=== PATIENT | female | born 1975 | race Caucasian/White ===

== ENCOUNTER 2022-01-15 11:13 | Emergency (ER) | payer SELFPAY ==
--- NOTE | 2022-01-15 13:15 | RAD REPORT ---
EXAM DESCRIPTION: RAD - Chest Single View - 01/15/2022 1:06 pm CLINICAL HISTORY: COUGH Chest pain. COMPARISON: No comparisons FINDINGS: Portable technique limits examination quality. The lungs are grossly clear. The heart is normal in size. No displaced fractures. IMPRESSION: No acute intrathoracic process suspected.
--- NOTE | 2022-01-15 13:30 | EDPHYS ---
Physician Documentation [facility] Name: Samantha Garcia Age: 46 yrs Sex: Female : 1975 Arrival Date: 01/15/2022 Time: 11:15 Bed 10 Private MD: ED Physician Joseph Adams Historical: - Allergies: 01/15 11:46 No Known Allergies; ss - Home Meds: 11:46 None [Active]; ss - PMHx: 11:46 None; ss - PSHx: 11:46 section; ss - Immunization history:: Client reports having NOT received the Covid vaccine. - Social history:: Smoking status: Patient denies any tobacco usage or history of. Vital Signs: 11:45 BP 144 / 97; Pulse 85; Resp 16; Temp 97.9(TE); Pulse Ox 100% on R/A; Weight 127.01 kg; ss Height 5 ft. 4 in. (162.56 cm); Pain 5/10; 11:45 Body Mass Index 48.06 (127.01 kg, 162.56 cm) ss MDM: 11:54 Patient medically screened. [facility] 01/15 11:47 Order name: COVID-19 SARS RT PCR (Document "Date of Onset" if Symptomatic); Complete Time: 13:28 01/15 11:47 Order name: Flu; Complete Time: 13:28 ss 01/15 12:25 Order name: Chest Single View XRAY; Complete Time: 13:28 [facility] Administered Medications: No medications were administered Disposition Summary: 01/15/22 13:29 Discharge Ordered Location: Home [facility] Problem: new [facility] Symptoms: are unchanged [facility] Condition: Stable [facility] Diagnosis - Coronavirus infection, unspecified [facility] Followup: [facility] - With: Private Physician - When: 5 - 6 days - Reason: Recheck today's complaints Discharge Instructions: - Discharge Summary Sheet [facility] - Viral Respiratory Infection, [id number] [facility] - COVID-19 [facility] - COVID-19 Frequently Asked Questions [facility] - 10 Things You Can Do to Manage Your COVID-19 Symptoms at Home - [place] [id number] Forms: - Medication Reconciliation Form [facility] - Thank You Letter [facility] Prescriptions: - Bromfed DM 2-30-10 mg/5 mL Oral syrup - take 10 milliliter by ORAL route every 4 hours; 240 milliliter; Refills: 0, 7 Product Selection Permitted - ProAir HFA 90 mcg/actuation Inhalation HFA aerosol inhaler - inhale 2 puff by INHALATION route every 4-6 hours; 1 Inhaler; Refills: 0, jh7 Product Selection Permitted Signatures: Dispatcher [employer] Ely Renner RN RN Shante Rice FNP [employer] 7
--- NOTE | 2022-01-15 13:30 | ER ---
Nurse's Notes [facility] Name: Samantha Garcia Age: 46 yrs Sex: Female : 1975 Arrival Date: 01/15/2022 Time: 11:15 Bed 10 Private MD: Diagnosis: Coronavirus infection, unspecified Presentation: 01/15 11:45 Chief complaint: Patient states: covid exposure. Fever and cough x 4 days. Coronavirus ss screen: Client denies travel out of the [place] in the last 14 days. Ebola Screen: Patient denies exposure to infectious person. Patient denies travel to an Ebola-affected area in the 21 days before illness onset. Initial Sepsis Screen: Does the patient meet any 2 criteria? No. Patient's initial sepsis screen is negative. Does the patient have a suspected source of infection? No. Patient's initial sepsis screen is negative. Risk Assessment: Do you want to hurt yourself or someone else? Patient reports no desire to harm self or others. Onset of symptoms was January 11, 2022. 11:45 Method Of Arrival: Ambulatory ss 11:45 Acuity: GONZALEZ 4 ss Historical: - Allergies: 11:46 No Known Allergies; ss - Home Meds: 11:46 None [Active]; ss - PMHx: 11:46 None; ss - PSHx: 11:46 section; ss - Immunization history:: Client reports having NOT received the Covid vaccine. - Social history:: Smoking status: Patient denies any tobacco usage or history of. Screenin:54 Abuse screen: Denies threats or abuse. Denies injuries from another. Nutritional ss screening: No deficits noted. Tuberculosis screening: Never had TB. Fall Risk None identified. Assessment: 13:54 Reassessment: Patient appears in no apparent distress at this time. Patient and/or ss family updated on plan of care and expected duration. Pain level reassessed. Patient is alert, oriented x 3, equal unlabored respirations, skin warm/dry/pink. Vital Signs: 11:45 BP 144 / 97; Pulse 85; Resp 16; Temp 97.9(TE); Pulse Ox 100% on R/A; Weight 127.01 kg; ss Height 5 ft. 4 in. (162.56 cm); Pain 5/10; 11:45 Body Mass Index 48.06 (127.01 kg, 162.56 cm) ED Course: 11:15 Patient arrived in ED. rg4 11:46 Triage completed. 11:46 Arm band placed on right wrist. 11:53 Shante Martin FNP is [facility] 7 11:53 Joseph Adams MD is Attending Physician. [facility] 13:06 Chest Single View XRAY In Process Unspecified. EDMS 13:54 Ely Milan, RN is Primary Nurse. ss 13:54 Patient has correct armband on for positive identification. Bed in low position. 13:54 No provider procedures requiring assistance completed. Patient did not have IV access ss during this emergency room visit. Administered Medications: No medications were administered Medication: 13:54 VIS not applicable for this client. Outcome: 13:29 Discharge ordered by . [facility] 13:54 Discharged to home ambulatory, with family. 13:54 Condition: good 13:54 Discharge instructions given to patient, Instructed on discharge instructions, follow up and referral plans. medication usage, Demonstrated understanding of instructions, follow-up care, medications, Prescriptions given X 2. 13:57 Patient left the ED. Signatures: Dispatcher [employer] EDMD Ely Milan RN RN linda Luacs Olesya rg4 Shante Martin FNP TALK SHOW HOST [facility]
[2022-01-15 14:07] VITALS: BP 144/97; TEMP 97.9; O2SAT 100
== END 2022-01-15 13:57 | disposition home or self-care (01) ==
LOC: ER 11:13
DX: U07.1 COVID-19 (principal)
CPT/HCPCS: 71045; 87804; U0003

== ENCOUNTER 2023-02-27 13:18 | Emergency (ER) | payer SELFPAY ==
--- OUTSIDE RECORDS SUMMARY | 2023-02-27 13:22 | XMS REPORT | Continuity of Care Document ---
:1975 Author Organization [facility] t Address [address] [facility]. [address] [place] [address] Care Team Providers Name Role Phone Asked, No Pcp Primary Care Physician Unavailable MADISON COTTER Attending Clinician Unavailable BARBRA SIDDIQI Attending Clinician Unavailable CLAY INGRAM Attending Clinician Unavailable YADIRA YOUNG Attending Clinician Unavailable Physician, No Primary or Family Admitting Clinician UnavailCLAY Ray Admitting Clinician Unavailable Anoop Delgado MA Unavailable Unavailable Barbra Siddiqi MD Unavailable Aida Domínguez LVN Unavailable Unavailable Fransisca Stewart MA Unavailable Unavailable Payers Payer Name Policy Type Policy Number Effective Date Expiration Date S verena [employer] [place] D [id number] 2020 00:00:00 Women Problems Condition Condition Condition Status Onset Resolution Last Treating Co mments Source Name Details Category Date Date Treatment Clinician Date COVID-19 COVID-19 67051-4 Active 2020-09-05 Danny, virus not virus not 2-24 13:38:39 Anoop detected detected 00:00: (Z20.822) 00 (Z03.818)O nset: JOSHUA Bal Anoop Abdominal Abdominal 76240-3 Active 2020-07-27 Siddiqi, mass, LLQ mass, LLQ 14:50:54 Barbra (left (left lower lower quadrant) quadrant) (R19.04) (789.34)MD Barbra Trejo Abortions AbortionsC 80588-9 Active 2020-07-27 omments: 14:15:07 1. Bartholin Bartholin 52588-9 Active 2020-06-21 Siddiqi, cyst cyst 13:16:00 Barbra (N75.0) (616.2)Pro gnosis: Draining on its own, much smaller than last visit. 1. continue Sitz baths 2. 3 days po doxy 3. RTC if it reaccumula tesOrderin g screening labs to discuss at next visit. 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 Aida Calculus Calculus 18728-0 Active 2020-12-06 Siddiqi, of of 09:38:14 Barbra gallbladde gallbladde r without r without cholecysti cholecysti tis tis without without obstructio obstructio n n (K80.20) (574.20)Trejo MD KrystalCom ments: Abdominal U/S in October 2020 Contact Contact 74605-7 Active 2020-08-31 Siddiqi, with and with and 15:39:08 Barbra (suspected (suspected ) exposure ) exposure to Covid to Covid (Renamed (Renamed from from Contact Contact with or with or suspected suspected exposure exposure to other to other viral viral communicab communicab le le disease) disease) (Z20.828) (V01.79)Trejo MD Barbra Deliveries Deliveries 97507-5 Active 2020-07-27 (Para) (Para)Comm 14:15:07 ents: 4. Visit for Visit for [address] [place] [address] Active 2020-06-14 Stone, screening screening 13:32:51 Fransisca mammogram mammogram (Renamed (Renamed from from Encounter Encounter for for screening screening mammogram mammogram for for malignant malignant neoplasm neoplasm of breast) of breast) (Z12.31) (V76.12)[facility], [place] Fransisca Screening Screening [address] [place] [address] Active 2020-06-21 Siddiqi, for for 12:10:20 Barbra diabetes diabetes mellitus mellitus (Z13.1) (V77.1)José lemus MD [place] [address] Active 2020-12-06 Siddiqi, discharge discharge 09:36:25 Barbra follow-up follow-up (Z09) (V67.59)MD Barbra Trejo Irreducibl Irreducibl [address] [place] [address] Active 2020-12-06 Devang, e hernia e hernia 09:37:23 Barbra of of anterior anterior abdominal abdominal wall wall (K43.6) (552.20)MD Barbra Trejo Menorrhagi Menorrhagi [address] [place] [address] Active 2020-12-06 Devang, a a (N92.0) 09:39:37 Barbra (626.2)Pro gnosis: Pt will need endometria l biopsy. Make f/u appointmen t for that. Will start po iron today. 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 Ventral Ventral 40389-4 Active 2020-12-06 Siddiqi, hernia hernia 09:37:41 Barbra without without obstructio obstructio n or n or gangrene gangrene (K43.9) (553.20)MD Barbra Trejo Allergies, Adverse Reactions, Alerts Allergy Allergy Status Severity Reaction(s) Onset Inactive Treating Comm ents Source Name Type Date Date Clinician No Known DA Active U [facility]- [facility] 00:00: [address] No Known DA Active U 2019-07 [facility]- [facility] s 00:00: [address] No Known DA Active U [facility] - Wesley s 00:00: [address] Social History Social Habit Start Date Stop Date Quantity Comments Source Drug Use: No drug use. Tobacco use: Never smoker. Tobacco/Smoke Family members Exposure: smoke indoors. Family members smoke outdoors only. Vaping/JUULing: Never smoker. Alcohol Use: Occasional alcohol use. Gender identity [facility] Sexual orientation [facility] Sex Assigned At [birth year] [facility] 00:[facility]00 [facility] Smoking Status Start Date Stop Date Source Tobacco smoking consumption unknown [facility] Medications Ordered Filled Start Stop Current Ordering Indication Dosage Frequency Signature Comments Components Source Medication Medication Date Date Medication? Clinician (SIG) Name Name Ferrous No 1{Table Q0.5D Ferrous Sulfate 325 5-27 t} Sulfate (65 Fe) MG 00:00: 325 (65 Oral Tablet 00 Fe) MG Oral Tablet; 1 (one) Tablet twice a day for 30 daysQuanti ty: 60 {Tablet}Re fills: 0Ordered: 1DMD Jersey matthewsystalSta rt: 1 Ferrous No 1{Table Q0.5D Ferrous Sulfate 325 5-27 t} Sulfate (65 Fe) MG 00:00: 325 (65 Oral Tablet 00 Fe) MG Oral Tablet; 1 (one) Tablet twice a day for 30 daysQuanti ty: 60 {Tablet}Re fills: 0Ordered: 1DMD Courtney matthews rt: 1 PATIENT NOT No 1 PATIENT TAKING ANY 1-15 NOT TAKING HERBAL 14:17: ANY HERBAL MEDICATIONS 36 MEDICATION AT THIS S AT THIS TIME (Oral TIME (Oral Capsule) Capsule) (Free Text) (Free Text); 1 (one) PATIENT NOT No 1 PATIENT TAKING ANY 1-15 NOT TAKING HERBAL 14:17: ANY HERBAL MEDICATIONS 36 MEDICATION AT THIS S AT THIS TIME (Oral TIME (Oral Capsule) Capsule) (Free Text) (Free Text); 1 (one) Doxycycline 2019-07 No 1{Table QD Doxycyclin Hyclate 100 2-10 t} e Hyclate MG Oral 00:00: 100 MG Tablet 00 Oral Tablet; 1 (one) Tablet daily for 3 daysQuanti ty: 3 {Tablet}Re fills: 0Ordered: 0MD Courtney Siddiqi rt: 0 Doxycycline 2019-07 No 1{Table QD Doxycyclin Hyclate 100 2-10 t} e Hyclate MG Oral 00:00: 100 MG Tablet 00 Oral Tablet; 1 (one) Tablet daily for 3 daysQuanti ty: 3 {Tablet}Re fills: 0Ordered: 0MD Courtney Siddiqi rt: 0 Vital Signs Vital Name Observation Time Observation Value Comments Source Temperature 2020-07-27 14:14:01 97.2 [degF] Pulse 2020-07-27 14:14:01 51 /min Pattern: Regular Respiration Rate 2020-07-27 14:14:01 16 /min Pattern: Unlabore d BP Systolic 2020-07-27 14:14:01 129 mm[Hg] Patient Position: Sitting; Cuff Location: Left Arm; Cuff Size: Standard BP Diastolic 2020-07-27 14:14:01 72 mm[Hg] Patient Position: Sitting; Cuff Location: Left Arm; Cuff Size: Standard Weight 2020-07-27 14:14:01 150 [lb_av] Height 2020-07-27 14:14:01 64 [in_us] BMI 2020-07-27 14:14:01 25.75 kg/m2 Temperature 2020-06-21 11:12:02 97.6 [degF] Method: Oral Pulse 2020-06-21 11:12:02 63 /min Pattern: Regular Respiration Rate 2020-06-21 11:12:02 18 /min Pattern: Unlabore d BP Systolic 2020-06-21 11:12:02 134 mm[Hg] Patient Position: Sitting; Cuff Location: Left Arm; Cuff Size: Standard BP Diastolic 2020-06-21 11:12:02 80 mm[Hg] Patient Position: Sitting; Cuff Location: Left Arm; Cuff Size: Standard Weight 2020-06-21 11:12:02 149 [lb_av] Height 2020-06-21 11:12:02 64 [in_us] BMI 2020-06-21 11:12:02 25.58 kg/m2 Temperature 2020-06-14 13:41:08 97.4 [degF] Method: Oral Pulse 2020-06-14 13:41:08 73 /min Pattern: Regular Respiration Rate 2020-06-14 13:41:08 16 /min Pattern: Unlabore d BP Systolic 2020-06-14 13:41:08 157 mm[Hg] Patient Position: Sitting; Cuff Location: Right Arm; Cuff Size: Standard BP Diastolic 2020-06-14 13:41:08 77 mm[Hg] Patient Position: Sitting; Cuff Location: Right Arm; Cuff Size: Standard Weight 2020-06-14 13:41:08 255 [lb_av] Height 2020-06-14 13:41:08 64 [in_us] BMI 2020-06-14 13:41:08 43.77 kg/m2 Procedures Procedure Date / Time Performed Performing Clinician [facility] e TRANSVAGINAL ULTRASOUND (05355) 2020-12-06 00:00:00 An Siddiqi Patient received annual dental 2020-06-21 00:00:00 check-up NEGATIVE SCREEN FOR CLINICAL 2020-06-14 00:00:00 Barbra Siddiqi DEPRESSION, FOLLOW-UP NOT REQUIRED (G8510) [id number] COUNSELING 2020-06-14 00:00:00 Purvi Siddiqi FOR OBESITY (G0447) DOCUMENTATION OF FOLLOW-UP PLAN FOR 2020-06-14 00:00:00 Barbra Siddiqi PATIENT WITH BMI ABOVE NORMAL (G8417) PATIENT SCREENED FOR TOBACCO USE 2020-06-14 00:00:00 Sweta Siddiqi AND IDENTIFIED A TOBACCO NON-USER (G9903) SCREENING FOR TOBACCO USE (4004F) 2020-06-14 00:00:00 Jersey Siddiqi Breast Cancer Screening 2020-06-14 00:00:00 Pap Smear 2020-06-14 00:00:00 Annual Eye Exam - FOR NON-DIABETICS ONLY Delivery Plan of Care Planned Activity Planned Date Details Comments Source Future Scheduled Test 2023-02-15 Hepatitis C [facility] 10:02:46 screening (procedure) [code = 934492672] Future Scheduled Test 2023-02-[address] [facility] 10:02:46 malignant neoplasm of cervix (procedure) [code = 894230391] Future Scheduled Test 2023-02-[address] [facility] 10:02:46 SCREENING [code = BREAST CANCER SCREENING] Future Scheduled Test 2023-02-[address] [facility] 10:02:46 malignant neoplasm of colon (procedure) [code = 474062396] Future Scheduled Test 2023-02-[address] [facility] 10:02:46 malignant neoplasm of colon (procedure) [code = 502816037] Future Scheduled Test 2023-02-15 INFLUENZA VACCINE [facility] 10:02:46 [code = INFLUENZA VACCINE] Future Scheduled Test 2023-02-[address] [facility] 10:02:46 malignant neoplasm of colon (procedure) [code = 915830200] Future Scheduled Test 2023-02-[address] [facility] 10:02:46 malignant neoplasm of colon (procedure) [code = 807216545] Future Scheduled Test 2023-02-[address] [facility] 10:02:46 malignant neoplasm of colon (procedure) [code = 189030304] Future Scheduled Test 2023-02-15 COVID-19 VACCINE [facility] 10:02:46 (#1) [code = COVID-19 VACCINE (#1)] Diagnostic Test 2020-12-06 IRON AND TIBC Pending 09:38:29 (12782) [code = 79804] Diagnostic Test 2020-12-06 IRON AND TIBC Pending 09:38:29 (43009) [code = 33493] Diagnostic Test 2020-12-06 FERRITIN (80873) Pending 09:38:26 [code = 88310] Diagnostic Test 2020-12-06 FERRITIN (59644) Pending 09:38:26 [code = 06423] Diagnostic Test 2020-12-06 CBC & PLATELETS Pending 09:38:22 (AUTO) (91972) [code = 19542] Diagnostic Test 2020-12-06 CBC & PLATELETS Pending 09:38:22 (AUTO) (00546) [code = 95357] Encounters Start End Encounter Admission Attending Care Care Encounter Source Date/Time Date/Time Type Type Clinicians Facility Department ID 2021-10-05 Outpatient [facility] [id number] [place] 07:40:31 [id number] [facility] 2020-11-04 Inpatient [facility] [id number] [facility] 12:34:00 09 [facility] 2020-05-03 Inpatient [facility] [id number] [facility] 18:31:00 87 [facility] 2020-03-23 Inpatient [facility] [id number] [facility] 10:47:00 25 [facility] 2020-12-06 2020-12-06 Historical 0 Wesley [id number] 09:29:10 16:53:59 Summary 94 2020-09-05 2020-09-05 Results 0 Wesley [id number] 13:37:46 13:38:45 notificati 64 on 2020-08-31 2020-08-31 Lab order 0 Wesley [id number] 15:38:53 16:15:46 without 62 visit 2020-08-15 2020-08-15 Phone 0 Wesley [id number] 16:26:40 16:29:49 Encounter 32 2020-08-15 2020-08-15 Outpatient CYNDEE [facility] [id number] [place] 00:00:00 00:00:00 , MADISON hunt 2020-07-27 2020-07-31 Office 0 Wesley [id number] 14:13:48 14:49:40 Visit 29 2020-07-18 2020-07-18 Outpatient SIDDIQI, [facility] [id number] [place] 00:00:00 00:00:00 BARBRA 115 Method i 2020-07-18 2020-07-18 Outpatient SIDDIQI, [facility] [id number] [place] 00:00:00 00:00:00 BARBRA 928 Method i 2020-07-18 2020-07-18 Outpatient SIDDIQI, [facility] [id number] [place] 00:00:00 00:00:00 BARBRA 929 Method i 2020-06-21 2020-06-29 Office 0 Wesley [id number] 11:09:30 10:34:36 Visit 46 2020-06-14 2020-06-20 Office 0 Wesley [id number] 13:30:54 16:39:21 Visit 62 2000-10-20 2000-10-22 Inpatient CLAY EUBANSK [facility] [id number] [place] 09:20:00 18:00:00 -[id number] [facility]ly [facility] 2000-09-28 2000-09-28 Outpatient CLAY EUBANKS [facility] D00 [id number] [place] 09:39:00 09:39:00 -[id number] Formerly [facility] 2000-08-05 2000-08-05 Outpatient CLAY EUBANKS [facility] D00 [id number] [place] 08:49:00 08:49:00 -[id number] Formerly [facility] 2000-05-11 2000-05-11 Outpatient CLAY EUBANKS [facility] D00 [id number] [place] 15:30:00 15:30:00 -[id number] Formerly [facility] 2000-05-05 2000-05-05 Outpatient CLAY EUBANKS [facility] D00 [id number] [place] 15:35:00 15:35:00 -[id number] Formerly [facility] 2000-04-14 2000-04-14 Outpatient CLAY EUBANKS [facility] D00 [id number] [place] 11:39:00 11:39:00 -[id number] Formerly [facility] 2000-04-10 2000-04-10 Outpatient ANGIE INGRAM [facility] D00 [id number] [place] 11:27:00 11:27:00 -[id number] Formerly [facility] 2000-02-29 2000-02-29 Emergency ER HANNAH, [facility] [id number] [place] 07:27:00 10:45:00 YADIRA -[id number] Formerly [facility] 1999-09-07 1999-09-09 Inpatient UR NATALY [facility] D000 [id number] [place] 11:03:00 21:17:00 -[id number] Formerly [facility] 1999-08-08 1999-08-08 Outpatient ANGIE INGRAM [facility] D00 [id number] [place] 14:18:00 14:18:00 -[id number] Formerly [facility] 1999-06-13 1999-06-13 Outpatient ANGIE INGRAM [facility] D00 [id number] [place] 08:52:00 08:52:00 -[id number] Formerly [facility] 1999-04-02 1999-04-02 Outpatient ANGIE INGRAM [facility] D00 [id number] [place] 16:02:00 16:02:00 -[id number] Formerly [facility] 1999-02-04 1999-02-04 Outpatient ANGIE INGRAM [facility] D00 [id number] [place] 11:57:00 11:57:00 -[id number] Formerly [facility] Results Test Description Test Time Test Comments Results Result Comments Source CBC W/AUTO DIFF 2020-11-05 06:49:00 Test Item Value Reference Range Interpretation Comme nts WHITE BLOOD CELL (test code = WBC) 6.9 K/mm3 4.1-12.1 N RED BLOOD CELL (test code = RBC) 3.98 M/mm3 3.8-5.5 N HEMOGLOBIN (test code = HGB) 9.1 G/DL 10.6-15.8 L HEMATOCRIT (test code = HCT) 32.3 % 31.8-47.4 N MEAN CELL VOLUME (test code = MCV) 81.2 fL 80.1-101.1 N MEAN CELL HGB (test code = MCH) 22.9 pg 25.3-35.3 L MEAN CELL HGB CONCETRATION (test code = MCHC) 28.2 G/DL 32.7-35. 1 L RED CELL DISTRIBUTION WIDTH (test code = RDW) 18.4 % 12.2-16. 4 H RED CELL DISTRIBUTION WIDTH (test code = RDW-SD) 53.7 fL 36.4- 46.3 H PLATELET COUNT (test code = PLT) 212 K/mm3 155-337 N MEAN PLATELET VOLUME (test code = MPV) 11.0 fL 6.8-11.2 N GRANULOCYTE % (test code = GR%) 72.9 % 37.8-82.6 N IMMATURE GRANULOCYTE % (test code = IG%) 0.9 % 0.0-2.0 N LYMPHOCYTE % (test code = LY%) 17.2 % 14.1-45.4 N MONOCYTE % (test code = MO%) 6.1 % 2.5-11.7 N EOSINOPHIL % (test code = EO%) 1.9 % 0.0-6.2 N BASOPHIL % (test code = BA%) 1.0 % 0.0-2.1 N NUCLEATED RBC % (test code = NRBC%) 0.0 /100WBC% 0.0-1.0 N GRANULOCYTE # (test code = GR#) 5.03 k/mm3 2.0-13.7 N IMMATURE GRANULOCYTE # (test code = IG#) 0.06 K/mm3 0.00-0.03 H LYMPHOCYTE # (test code = LY#) 1.19 K/mm3 0.6-3.8 N MONOCYTE # (test code = MO#) 0.42 K/mm3 0.11-0.59 N EOSINOPHIL # (test code = EO#) 0.13 K/mm3 0.0-0.4 N BASOPHIL # (test code = BA#) 0.07 K/mm3 0.0-0.1 N NUCLEATED RBC # (test code = NRBC#) 0.00 K/mm3 0.0-0.05 N COVID 19 Asymptomatic IH [id number] 15:18:00 Test Item Value Reference Range Interpretation Comments COVID 19 Asymptomatic IH AG (test Negative Neg code = COVNONPUIAG) - CT ABD PELVIS [id number] 15:06:00 [facility] : 1975 Sex: F Patient Name: ZONIA HENDRIX Unit No: [id number] EXAMS: CPT CODE: [id number] CT ABD PELVIS W/CONT 20690 LOCATION: T18 EXAM: CT ABDOMEN AND PELVIS WITH CONTRAST INDICATION: abd pain- RLQ hernia and epigastric pain, COMPARISON: None. TECHNIQUE: Multiple CT images of the abdomen and pelvis were obtained with recon structions in the coronal and sagittal planes. 75 ml of Isovue 300 was given intravenously. Up-to-date CT equipment and radiation dose reduction techniques were utilized. Automatic exposure control wasutilized. FINDINGS: Lung bases are clear. Liver is normal in appearance. Spleen is enlarged measuring 15.6 cm in size. Adrenal glands and pancreas normal. Gallbladder is contracted with multiple stonesmeasuring up to 11 mm. No bladder distention. Portal vasculature is patent. Kidneys enhance symmetrically. Tiny focal nodule in the left kidney containing macroscopic fat. This measures 9 mm. This mostlikely represents a small angiomyolipoma. No hydronephrosis or hydroureter. Urinary bladder is normal in size. Uterus and adnexal structures are age-appropriate in appearance. Large right lower quadrant hernia through the abdominal wall. Defect in the abdominal wall measures 5 cm. This contains small and large bowel loops. The appendix is also within this hernia. No bowel obstruction is seen. No evidence for strangulation or incarceration. Abdominal aorta is normal in caliber. IVC is normal. Bones are intact. Peripheral soft tissues are unremarkable. IMPRESSION: 1. Large right lower quadrant herniathrough the abdominal wall defect measuring 5 cm. Hernia contains small and large bowel loops. No bowel obstruction. No complication to suggest strangulation or incarceration. 2. Stones throughout the gallbladder measuring up to 9 mm. 3. Splenomegaly. at 1506 Reported and signed by: Chencho Camarena MD CC: Erin Burgess WORKING MANAGER Dictated Date/Time: 11/04/2020 (150) Technologist: Jasbir Prasad CTDI: 14.73 DLP: 801.07 Trnscrpt: 11/04/2020 (150) [email or web address] JOYCE Nowak NAME: HENDRIX[address] PHYS: Erin Rico NP [place] [address] : 1975 AGE: 45 SEX: F LOC: HaydeeANIKA 1 PHONE #: [phone] EXAM DATE: 11/04/2020 STATUS: ADM IN FAX #: [phone] RAD #: D/C DT PAGE 1 Signed Report Patient Name: ZONIA HENDRIX Unit No: [id number] EXAMS: CPT CODE: [id number] CT ABD PELVIS W/CONT 02496 (Continued) Orig Print D/T: S: 11/04/2020 (1509) JOYCE Nowak NAME: [address] PHYS: Erin Rico NP [place] [address] : 1975 AGE: 45 SEX: F LOC: MARYANN 1 PHONE #: [phone] EXAM DATE: 11/04/2020 STATUS: ADM IN FAX #: [phone] RAD #: D/CDT PAGE 2 [facility] [id number] 14:09:00 Test Item Value Reference Range Interpretation Comments WHITE BLOOD CELL (test code = WBC) 7.0 K/mm3 4.1-12.1 N RED BLOOD CELL (test code = RBC) 3.29 M/mm3 3.8-5.5 L HEMOGLOBIN (test code = HGB) 6.8 G/DL 10.6-15.8 L HEMATOCRIT (test code = HCT) 25.6 % 31.8-47.4 L MEAN CELL VOLUME (test code = MCV) 77.8 fL 80.1-101.1 L MEAN CELL HGB (test code = MCH) 20.7 pg 25.3-35.3 L MEAN CELL HGB CONCETRATION (test 26.6 G/DL 32.7-35.1 L code = MCHC) RED CELL DISTRIBUTION WIDTH (test 18.3 % 12.2-16.4 H code = RDW) PLATELET COUNT (test code = PLT) 211 K/mm3 155-337 N MEAN PLATELET VOLUME (test code = 10.3 fL 6.8-11.2 N MPV) DIFFERENTIAL [id number] 14:09:00 Test Item Value Reference Range Interpretation Comments POLYCHROMASIA (test code = SLIGHT ON SCAN NONE POLC) HYPOCHROMIA (test code = HYPO) MOD ON SCAN NONE A ANISOCYTOSIS (test code = SLIGHT ON SCAN NONE ANISO) STOMATOCYTES (test code = STO) RARE ON SCAN NONE PLATELET ESTIMATE (test code = ADEQ ON SCAN ADEQUATE PLTEST) - US ABDOMEN [id number] 13:46:00 [facility] : 1975 Sex: F Patient Name: ZONIA HENDRIX Unit No: [id number] EXAMS: CPT CODE: [id number] US ABDOMEN COMPLETE 08088 EXAM: - US ABDOMEN COMPLETE HISTORY: abd pain- RLQ hernia and epigastric pain C3 TECHNIQUE: Survey ultrasoundimaging of the right upper abdomen was performed including color Doppler evaluation of the main portal vein with financial representative images obtained. COMPARISON: None FINDINGS: Statements: None. Liver: Right hepatic lobe length: 14 cm Parenchyma/Contour: Increase in echogenicity consistent with hepatic steatosis. No focal hepatic lesions noted sonographically. Main portal vein: Patent with normal (hepatopetal) flow. Biliary ducts: No intrahepatic biliary ductal dilation. Common duct measures 5.6 mm in diameter at the vanna hepatis. Gallbladder: The gallbladder is contracted around multiple stones. No gallbladder wall thickening or pericholecystic fluid. Pancreas: The pancreas is obscured by bowel gas. Right Kidney: The right kidney has a normal sonographic appearance. No solid mass lesion is seen. No hydronephrosis is present. Renal cortical thickness and echogenicity is within normal limits. Length: 11.5 cm Vessels: The visualized IVC in the upper abdomen is unremarkable. The visualized aorta in the upper abdomen is unremarkable. Other: Additional targeted imaging of the right lower quadrant demonstrates a hernia with normally peristalsing bowel present. IMPRESSION: 1. Cholelithiasis. No sonographic evidence of acute cholecystitis or biliary dilatation/obstruction. 2. Minimal hepatic steatosis. No focal hepatic lesions noted sonographically. 3. Additional targeted imaging of the right lower q uadrant demonstrates a bowel-containing hernia. Correlate clinically on physical exam and consider further evaluation with CT if it is clinically warranted. JOYCE Wesley NAME: [address] PHYS: Erin [place] [address] : 1975 AGE: 45 SEX: F LOC: SHARAN PHONE #: [phone] EXAM DATE: 11/04/2020 STATUS: [facility] FAX #: [phone] RAD NO: Page 1 Signed Report (CONTINUED) Patient Name: ZONIA HENDRIX Unit No: [id number] EXAMS: CPT CODE: [id number] US ABDOMEN COMPLETE 29324 (Continued) at 1346 Reported and signed by: Sylvie Chacon MD CC: Erin Burgess NP Technologist: Sabrina Wiley RDMS Trnscrbd D/ (1346) [email or web address] Probe: Orig Print D/T: S: 11/04/2020 (1349) Probe: JOYCE Nowak NAME: H[address]RI[address] PHYS: Erin Rico [place] [address] : 1975 AGE: 45 SEX: F LOC: SHARAN PHONE #: [phone] EXAM DATE: 11/04/2020 STATUS: [facility] FAX #: [phone] RAD NO: Page 2 Signed ReportBASIC METABOLIC [id number] 13:33:00 Test Item Value Reference Range Interpretation Comments SODIUM (test code = 137.0 mmol/L 133-144 N NA) POTASSIUM (test 3.7 mmol/L 3.5-5.1 N code = K) CHLORIDE (test code 108 mmol/L 95-105 H = CL) CARBON DIOXIDE 24 mmol/L 21-32 N (test code = CO2) ANION GAP (test 5.0 GAP calc 4.0-15.0 N code = GAP) GLUCOSE (test code 107 MG/DL 70-110 N = GLU) BLOOD UREA NITROGEN 13 MG/DL 7-18 N (test code = BUN) CREATININE (test 0.72 MG/DL 0.55-1.30 N Results may be code = CREAT) depressed if p atient is takingN-Acetylc ystei ne (NAC) and Metamizole (Dipyrone). CALCIUM (test code 8.8 MG/DL 8.5-10.1 N = CA) INDEX HEMOLYSIS 1 NORMAL <10 MG See_Comment [Automat ed message] (test code = Index/DL The system [employer] HEMINDEX) generated this result transmit stuart reference range : 1 NORMAL. The reference range was not used to interpret this result as normal/abnormal . INDEX ICTERIC (test 1 NORMAL <2 MG See_Comment [Auto mated message] code = ICTINDEX) Index/DL The system which generated this result transmit stuart reference range : 1 NORMAL. The reference range was not used to interpret this result as normal/abnormal . INDEX LIPEMIA (test 1 NORMAL <50 MG See_Comment [Aut omated message] code = LIPINDEX) Index/DL The system which generated this result transmit stuart reference range : 1 NORMAL. The reference range was not used to interpret this result as normal/abnormal . HEPATIC FUNCTION [id number] 13:33:00 Test Item Value Reference Range Interpretation Comments TOTAL PROTEIN (test code = PROT) 8.0 G/DL 6.4-8.2 N ALBUMIN (test code = ALB) 4.0 G/DL 3.4-5.0 N BILIRUBIN TOTAL (test code = BILT) 0.57 MG/DL 0.00-1.00 N BILIRUBIN DIRECT (test code = 0.14 MG/DL 0.00-0.30 N BILD) BILIRUBIN INDIRECT (test code = 0.43 MG/DL 0.2-1.3 N BILIND) SGOT/AST (test code = AST) 18 Unit/L 15-37 N SGPT/ALT (test code = ALT) 28 Unit/L 12-78 N ALKALINE PHOSPHATASE TOTAL (test 69 Unit/L 45-117 N code = ALKP) [id number] 13:33:00 Test Item Value Reference Range Interpretation Comments LIPASE (test code = LIP) 61 Unit/L 114-286 L BASIC METABOLIC [id number] 13:31:00 Test Item Value Reference Range Interpretation Comments SODIUM (test code = 137.0 mmol/L 133-144 N NA) POTASSIUM (test 3.7 mmol/L 3.5-5.1 N code = K) CHLORIDE (test code 108 mmol/L 95-105 H = CL) CARBON DIOXIDE 24 mmol/L 21-32 N (test code = CO2) ANION GAP (test 5.0 GAP calc 4.0-15.0 N code = GAP) GLUCOSE (test code 107 MG/DL 70-110 N = GLU) BLOOD UREA NITROGEN 13 MG/DL 7-18 N (test code = BUN) CREATININE (test 0.72 MG/DL 0.55-1.30 N Results may be code = CREAT) depressed if p atient is takingN-Acetylc ystei ne (NAC) and Metamizole (Dipyrone). CALCIUM (test code 8.8 MG/DL 8.5-10.1 N = CA) INDEX HEMOLYSIS 1 NORMAL <10 MG See_Comment [Automat ed message] (test code = Index/DL The system [employer] HEMINDEX) generated this result transmit stuart reference range : 1 NORMAL. The reference range was not used to interpret this result as normal/abnormal . INDEX ICTERIC (test 1 NORMAL <2 MG See_Comment [Auto mated message] code = ICTINDEX) Index/DL The system which generated this result transmit stuart reference range : 1 NORMAL. The reference range was not used to interpret this result as normal/abnormal . INDEX LIPEMIA (test 1 NORMAL <50 MG See_Comment [Aut omated message] code = LIPINDEX) Index/DL The system which generated this result transmit stuart reference range : 1 NORMAL. The reference range was not used to interpret this result as normal/abnormal . HEPATIC FUNCTION [id number] 13:31:00 Test Item Value Reference Range Interpretation Comments TOTAL PROTEIN (test code = PROT) G/DL 6.4-8.2 ALBUMIN (test code = ALB) 4.0 G/DL 3.4-5.0 N BILIRUBIN TOTAL (test code = BILT) MG/DL 0.00-1.00 BILIRUBIN DIRECT (test code = 0.14 MG/DL 0.00-0.30 N BILD) BILIRUBIN INDIRECT (test code = MG/DL 0.2-1.3 BILIND) SGOT/AST (test code = AST) 18 Unit/L 15-37 N SGPT/ALT (test code = ALT) 28 Unit/L 12-78 N ALKALINE PHOSPHATASE TOTAL (test Unit/L 45-117 code = ALKP) [id number] 13:31:00 Test Item Value Reference Range Interpretation Comments LIPASE (test code = LIP) 61 Unit/L 114-286 L UA RFLX MICR CULT IF [id number] 13:23:00 Test Item Value Reference Range Interpretation Comments UA COLOR (test code = LIGHT-YELLOW YELLOW COLU) DESCRIPT UA APPEARANCE (test CLEAR DESCRIPT CLEAR code = APPU) UA GLUCOSE DIPSTICK NORMAL (0) See_Comment [Automa stuart (test code = DGLUU) mg/dL message] The system which generated this result transmit stuart reference range : 0 (NORMAL). The reference range was not used to interpret this result as normal/abnormal . UA BILIRUBIN DIPSTICK NEGATIVE (0.0) See_Comment [Au tomated (test code = BILU) mg/dL message] The system which generated this result transmit stuart reference range : (NEG) 0. The reference range was not used to interpret this result as normal/abnormal . UA KETONE DIPSTICK NEGATIVE (0) See_Comment [Automat ed (test code = KETU) mg/dL message] The system which generated this result transmit stuart reference range : (NEG) 0. The reference range was not used to interpret this result as normal/abnormal . UA SPECIFIC GRAVITY 1.019 SG 1.001-1.035 (test code = SGU) UA BLOOD DIPSTICK 1.00 (3+) mg/dL See_Comment A [Autom ated (test code = JAY) message] T he system which generated this result transmit stuart reference range : 0 (NEG). The reference range was not used to interpret this result as normal/abnormal . UA PH DIPSTICK (test 6.0 pH UNITS 4.6-8.0 code = ZONIA) UA PROTEIN DIPSTICK 10 (TRACE) See_Comment A [Automa stuart (test code = PROU) mg/dL message] The system which generated this result transmit stuart reference range : <30 (1+). The reference range was not used to interpret this result as normal/abnormal . UA UROBILINIOGEN NORMAL (0) See_Comment [Automated DIPSTICK (test code = mg/Dl messag e] The URO) system which generated this result transmit stuart reference range : <2.0 (1+). The reference range was not used to interpret this result as normal/abnormal . UA NITRITE DIPSTICK NEGATIVE (0) NEG (test code = HANS) SCREEN UA LEUKOCYTE ESTERASE NEGATIVE (0) See_Comment [Auto mated DIPSTICK (test code = Leuk/mcL messag e] The LEUU) system which generated this result transmit stuart reference range : (NEG) 0. The reference range was not used to interpret this result as normal/abnormal . UA COMMENT (test code CLEAN CATCH SpecComment = COMU) SPEC NoteSPEC UA WBC (test code = 0-3 #WBC/HPF 0-3 WBCU) UA RBC (test code = >100 #RBC/HPF 0-3 A RBCU) UA SQUAMOUS CELLS RARE >0 /UL NONE-SQepi (test code = SQU) UA MUCUS (test code = RARE /LPF NONE MUCU) UA CULTURE NEEDED? Crit NOTmet Cult byWBC (test code = UACULT) CULT-N/A Criteria Indication for culture: Suprapubic PainUR HCG [id number] 13:23:00 Test Item Value Reference Range Interpretation Comments UR HCG QUAL (test code = HCGQLU) NEG Indication for culture: Suprapubic PainUA RFLX MICR CULT IF [id number] 13:23:00 Test Item Value Reference Range Interpretation Comments UA COLOR (test code = LIGHT-YELLOW YELLOW COLU) DESCRIPT UA APPEARANCE (test CLEAR DESCRIPT CLEAR code = APPU) UA GLUCOSE DIPSTICK NORMAL (0) See_Comment [Automa stuart (test code = DGLUU) mg/dL message] The system which generated this result transmit stuart reference range : 0 (NORMAL). The reference range was not used to interpret this result as normal/abnormal . UA BILIRUBIN DIPSTICK NEGATIVE (0.0) See_Comment [Au tomated (test code = BILU) mg/dL message] The system which generated this result transmit stuart reference range : (NEG) 0. The reference range was not used to interpret this result as normal/abnormal . UA KETONE DIPSTICK NEGATIVE (0) See_Comment [Automat ed (test code = KETU) mg/dL message] The system which generated this result transmit stuart reference range : (NEG) 0. The reference range was not used to interpret this result as normal/abnormal . UA SPECIFIC GRAVITY 1.019 SG 1.001-1.035 (test code = SGU) UA BLOOD DIPSTICK 1.00 (3+) mg/dL See_Comment A [Autom ated (test code = JAY) message] T he system which generated this result transmit stuart reference range : 0 (NEG). The reference range was not used to interpret this result as normal/abnormal . UA PH DIPSTICK (test 6.0 pH UNITS 4.6-8.0 code = ZONIA) UA PROTEIN DIPSTICK 10 (TRACE) See_Comment A [Automa stuart (test code = PROU) mg/dL message] The system which generated this result transmit stuart reference range : <30 (1+). The reference range was not used to interpret this result as normal/abnormal . UA UROBILINIOGEN NORMAL (0) See_Comment [Automated DIPSTICK (test code = mg/Dl messag e] The URO) system which generated this result transmit stuart reference range : <2.0 (1+). The reference range was not used to interpret this result as normal/abnormal . UA NITRITE DIPSTICK NEGATIVE (0) NEG (test code = HANS) SCREEN UA LEUKOCYTE ESTERASE NEGATIVE (0) See_Comment [Auto mated DIPSTICK (test code = Leuk/mcL messag e] The LEUU) system which generated this result transmit stuart reference range : (NEG) 0. The reference range was not used to interpret this result as normal/abnormal . UA COMMENT (test code CLEAN CATCH SpecComment = COMU) SPEC NoteSPEC UA WBC (test code = 0-3 #WBC/HPF 0-3 WBCU) UA RBC (test code = >100 #RBC/HPF 0-3 A RBCU) UA SQUAMOUS CELLS RARE >0 /UL NONE-SQepi (test code = SQU) UA MUCUS (test code = RARE /LPF NONE MUCU) UA CULTURE NEEDED? Crit NOTmet Cult byWBC (test code = UACULT) CULT-N/A Criteria Indication for culture: Suprapubic PainUR HCG [id number] 13:23:00 Test Item Value Reference Range Interpretation Comments UR HCG QUAL (test NEGATIVE NEG Very dilut e urines with a code = HCGQLU) low specific gravity may notcontain repr esentative levels of hCG. Indication for culture: Suprapubic PainCBC W/O [id number] 13:20:00 Test Item Value Reference Range Interpretation Comments WHITE BLOOD CELL (test code = WBC) 7.0 K/mm3 4.1-12.1 N RED BLOOD CELL (test code = RBC) 3.29 M/mm3 3.8-5.5 L HEMOGLOBIN (test code = HGB) 6.8 G/DL 10.6-15.8 L HEMATOCRIT (test code = HCT) 25.6 % 31.8-47.4 L MEAN CELL VOLUME (test code = MCV) 77.8 fL 80.1-101.1 L MEAN CELL HGB (test code = MCH) 20.7 pg 25.3-35.3 L MEAN CELL HGB CONCETRATION (test 26.6 G/DL 32.7-35.1 L code = MCHC) RED CELL DISTRIBUTION WIDTH (test 18.3 % 12.2-16.4 H code = RDW) PLATELET COUNT (test code = PLT) 211 K/mm3 155-337 N MEAN PLATELET VOLUME (test code = 10.3 fL 6.8-11.2 N MPV) DIFFERENTIAL [id number] 13:20:00 Test Item Value Reference Range Interpretation Comments MORPHOLOGY COMMENT (test code = MOC) ON SCAN NORMAL RBCS PLATELET ESTIMATE (test code = ON SCAN ADEQUATE PLTEST) SARS-CoV-2 RNA, (Covid-19) QUALITATIVE REAL TIME-PCR ([id number])2020-08-31 00:00:00 Test Item Value Reference Range Interpretation Comments SARS-CoV-2 RNA, (Covid-19) negative N QUALITATIVE REAL T (test code = SARS-CoV-2 RNA, (Covid-19) QUALITATIVE REAL T) SARS-CoV-2 RNA, (Covid-19) QUALITATIVE REAL TIME-PCR ([id number])2020-08-31 00:00:00 Test Item Value Reference Range Interpretation Comments SARS-CoV-2 RNA, (Covid-19) negative N QUALITATIVE REAL T (test code = SARS-CoV-2 RNA, (Covid-19) QUALITATIVE REAL T) LIPID PANEL ([id number])2020-06-21 00:00:00 Test Item Value Reference Range Interpretation Comments CHOLESTEROL, TOTAL 144 mg/dL N (test code = 2093-3) HDL CHOLESTEROL (test 41 mg/dL A code = 2085-9) TRIGLYCERIDES (test 127 mg/dL N code = 2571-8) LDL-CHOLESTEROL (test 81 N UNITS: mg/dL code = 54704-5) (calc)Refere nce range: <100Desirable r [place] <100 mg/dL for primary prevention;<70 mg/dL for patients wi th CHD or diabetic patientswith > or = 2 CHD risk factor s.LDL-C is now calculat ed using the [facility] alculati on, which is a validated novel method providingbetter accuracy than t sharla Lindald equa tion in theestimation o f LDL-C.Regan SS et al. TIMO. 2013;310( 19): 1904-0817(http: //educat ion.Quest[facility]o stics.co m/faq/EHN151) CHOL/HDLC RATIO (test 3.5 N code = 9830-1) NON HDL CHOLESTEROL 103 N UNITS: m g/dL (calc)For (test code = 46760-9) patien ts with diabetes plus 1 major CVD riskfactor, tex ating to a non-HDL-C goa l of <100 mg/dL(LDL- C of <70 mg/dL) is consi dered a therapeuticopti on.Test Performed at: [facility] [id number] [place] [address] Melba AUSTIN MD COMPREHENSIVE METABOLIC PANEL ([id number])2020-06-21 00:00:00 Test Item Value Reference Range Interpretation Comments GLUCOSE (test code 100 mg/dL 65-99 A Fasting r eference = 2345-7) intervalFor gisele eone without known diabetes, a glu cose valuebetween 10 0 and 125 mg/dL is consistent withprediabetes and should be confi rmed with afollow-up test. UREA NITROGEN 11 mg/dL 7-25 N (BUN) (test code = UREA NITROGEN (BUN)) CREATININE (test 0.76 mg/dL 0.50-1.10 N code = 2160-0) eGFR NON-AFR. 96 N UNITS: mL/min/ 1.73m2 MACEDONIAN (test code = eGFR NON-AFR. MACEDONIAN) eGFR 111 N UNITS: mL/min/1 .73m2 MACEDONIAN (test code = eGFR ) BUN/CREATININE NOT APPLICABLE 6-22 N RATIO (test code = 3094-0) SODIUM (test code 138 mmol/L 135-146 N = 2951-2) POTASSIUM (test 3.9 mmol/L 3.5-5.3 N code = 2823-3) CHLORIDE (test 105 mmol/L 98-110 N code = 2075-0) CARBON DIOXIDE 27 mmol/L 20-32 N (test code = CARBON DIOXIDE) CALCIUM (test code 9.6 mg/dL 8.6-10.2 N = 33174-4) PROTEIN, TOTAL 7.0 g/dL 6.1-8.1 N (test code = 2885-2) ALBUMIN (test code 4.2 g/dL 3.6-5.1 N = 1751-7) GLOBULIN (test 2.8 1.9-3.7 N UNITS: g/dL ( calc) code = 48893-0) ALBUMIN/GLOBULIN 1.5 1.0-2.5 N RATIO (test code = 1759-0) BILIRUBIN, TOTAL 0.6 mg/dL 0.2-1.2 N (test code = 1975-2) ALKALINE 66 U/L 31-125 N PHOSPHATASE (test code = 6768-6) AST (test code = 12 U/L 10-30 N 1920-8) ALT (test code = 12 U/L 6-29 N Test Perfor med 1742-6) at:[facility] [id number] [place] [address] BLANCA AUSTIN MD LIPID PANEL ([id number])2020-06-21 00:00:00 Test Item Value Reference Range Interpretation Comments CHOLESTEROL, TOTAL 144 mg/dL N (test code = 2093-3) HDL CHOLESTEROL (test 41 mg/dL A code = 5-9) TRIGLYCERIDES (test 127 mg/dL N code = 2571-8) LDL-CHOLESTEROL (test 81 N UNITS: mg/dL code = 51146-5) (calc)Refere nce range: <100[place]irable [place] <100 mg/dL for primary prevention;<70 mg/dL for patients wi th CHD or diabetic patientswith > or = 2 CHD risk factor s.LDL-C is now calculat ed using the [facility] alculati on, which is a validated novel method providingbetter accuracy than ramesh Rucker equa tion in theestimation o f LDL-C.Regan SS et al. TIMO. 2013;310( 19): 8577-1750(http: //educat ion.[facility] st[facility].co m/faq/DAO456) CHOL/HDLC RATIO (test 3.5 N code = 9830-1) NON HDL CHOLESTEROL 103 N UNITS: m g/dL (calc)For (test code = 58928-8) patien ts with diabetes plus 1 major CVD riskfactor, tex ating to a non-HDL-C goa l of <100 mg/dL(LDL- C of <70 mg/dL) is consi dered a therapeuticopti on.Test Performed at:[facility] [id number] [place] [address] Melba AUSTIN MD COMPREHENSIVE METABOLIC PANEL ([id number])2020-06-21 00:00:00 Test Item Value Reference Range Interpretation Comments GLUCOSE (test code 100 mg/dL 65-99 A Fasting r eference = 2345-7) intervalFor gisele eone without known diabetes, a glu cose valuebetween 10 0 and 125 mg/dL is consistent withprediabetes and should be confi rmed with afollow-up test. UREA NITROGEN 11 mg/dL 7-25 N (BUN) (test code = UREA NITROGEN (BUN)) CREATININE (test 0.76 mg/dL 0.50-1.10 N code = 2160-0) eGFR NON-AFR. 96 N UNITS: mL/min/ 1.73m2 MACEDONIAN (test code = eGFR NON-AFR. MACEDONIAN) eGFR 111 N UNITS: mL/min/1 .73m2 MACEDONIAN (test code = eGFR ) BUN/CREATININE NOT APPLICABLE 6-22 N RATIO (test code = 3094-0) SODIUM (test code 138 mmol/L 135-146 N = 2951-2) POTASSIUM (test 3.9 mmol/L 3.5-5.3 N code = 2823-3) CHLORIDE (test 105 mmol/L 98-110 N code = 2075-0) CARBON DIOXIDE 27 mmol/L 20-32 N (test code = CARBON DIOXIDE) CALCIUM (test code 9.6 mg/dL 8.6-10.2 N = 83300-1) PROTEIN, TOTAL 7.0 g/dL 6.1-8.1 N (test code = 2885-2) ALBUMIN (test code 4.2 g/dL 3.6-5.1 N = 1751-7) GLOBULIN (test 2.8 1.9-3.7 N UNITS: g/dL ( calc) code = 07166-1) ALBUMIN/GLOBULIN 1.5 1.0-2.5 N RATIO (test code = 1759-0) BILIRUBIN, TOTAL 0.6 mg/dL 0.2-1.2 N (test code = 1975-2) ALKALINE 66 U/L 31-125 N PHOSPHATASE (test code = 6768-6) AST (test code = 12 U/L 10-30 N 1920-8) ALT (test code = 12 U/L 6-29 N Test Perfor med 1742-6) at:[facility] [id number] [place] [address] BLANCA AUSTIN MD PAP IG AND HPV HIGH RISK DNA DETECTION WI/ REFLEX TO HPV GENOTYPES 16 AND 18 ([id number])2020-06-14 00:00:00 Test Item Value Reference Range Interpretation Comments CLINICAL SEE NOTE N None given INFORMATION: (test code = CLINICAL INFORMATION:) LMP: (test code = SEE NOTE N [id number] LMP:) PREV. PAP: (test SEE NOTE N NONE GIVEN code = PREV. PAP:) PREV. BX: (test SEE NOTE N NONE GIVEN code = PREV. BX:) SOURCE: (test SEE NOTE N Cervix, Endoce rvix code = SOURCE:) STATEMENT OF SEE NOTE N Satisfactory fo r ADEQUACY: (test evaluation.E ndocervical/ code = STATEMENT transformat ion zone OF ADEQUACY:) component abse nt. INTERPRETATION/RE SEE NOTE N Negative f or SULT: (test code intraepithe lial lesion = or malignancy. INTERPRETATION/RE SULT:) INFECTION: (test SEE NOTE N Trichomonas vaginalis code = identified. INFECTION:) COMMENT: (test SEE NOTE N This case cou ld not be code = COMMENT:) evaluated w [facility] [employer]. The slide was manuallyscr eened according to jagdish ortiz procedures. REVENUE STAMPER: SEE NOTE N DXG, CT( CP)CT (test code = Screening Locat ion: REVENUE STAMPER: Gerardo Tinoco [address] [place] [address] [id number] (test SEE NOTE N EXPLANATORY N OTE:The Pap code = 73773687) is a screen ing test for cervical cancer . It isnot a diagnos tic test and is subject to false negativeand fal se positive result s. It is most reliable w hen asatisfactory s ample, regularly obtai jaxon, is submittedwith r elevant clinical findin gs and history, and wh enthe Pap result is evalu ated along with hist oric andcurrent clin ical information. HPV mRNA E6/E7 Not Detected N This test was performed (test code = HPV using the A PTIMA HPV mRNA E6/E7) Assay ([employer]This assa y detects E6/E7 viral mes senger RNA (mRNA) from 14high-risk HPV types (16,18,31,33,35 ,39,45,51 ,52,56,58,59,66 ,68).The analytical perf ormance characteristics ofthis assay have been determined by [employer]. The modifications h ave not beencleared or approved by the FDA. Thi s assay hasbeen validat ed pursuant to the CLIA regulationsand is used for clinical purposes.Test P erformed at:[facility] [id number] [facility] [place] [address] BLANCA AUSTIN MD RPR (RAPID PLASMA REAGIN) ([id number])2020-06-14 00:00:00 Test Item Value Reference Range Interpretation Comments RPR (DX) W/REFL TITER NON-REACTIVE N Test P erformed AND CONFIRMATORY at:[facility] (test code = [address]6) [place] [address] BLANCA AUSTIN MD Chlamydia/GC Amplification(APTIMA SWAB) ([id number])2020-06-14 00:00:00 Test Item Value Reference Range Interpretation Comments CHLAMYDIA NOT DETECTED N TRACHOMATIS RNA, TMA, UROGENITAL (test code = CHLAMYDIA TRACHOMATIS RNA, TMA, UROGENITAL) NEISSERIA NOT DETECTED N GONORRHOEAE RNA, TMA, UROGENITAL (test code = NEISSERIA GONORRHOEAE RNA, TMA, UROGENITAL) [id number] (test code SEE NOTE N The anal ytical = 02023678) performance characteristics of thisassay, when used to test SurePat h(TM) specimens have beendetermined by [employer]. The modifications h avenot been cleared or approved by the FDA. This assay hasb een validated pursu ant to the CLIA regula tions and isused for clinical purpos es.For additional information, pl ease refer tohttps://educa tion.[employer]. com/faq /BVB719(This li nk is being provided for information/edu cationa l purposes only .)Test Performed at:[facility] [id number] [place] [address] BLANCA AUSTIN MD HIV-1 AG W/HIV-1 & HIV-2 AB ([id number])2020-06-14 00:00:00 Test Item Value Reference Range Interpretation Comments HIV AG/AB, NON-REACTIVE N HIV-1 antigen a nd 4TH GEN (test HIV-1/HIV-2 an tibodies were code = HIV notdetected. Th ere is no AG/AB, 4TH laboratory evid ence of GEN) HIVinfection.PL EASE NOTE: This informatio n has been disclosed toyou from records whose confident iality may beprotected by state law. If your state requ ires suchprotection, then the state law prohi bits you frommaking any further disclosure of t he informationwith out the specific writte n consent of the personto om it pertains, or as otherwise permitted by nilda yoder.A general authorization f or the release of medi cheri orother information is NOT sufficient for this purpose.For add itional information ple ase refer tohttp://[employer]/faq /TYI560(This link is being p rovided for informational/e ducational purposes only.) The performance of this assay has not been clinicallyvalid ated in patients less t sesay 2 years old.Test Perfor med at:[facility] [id number] [place] [address] BLANCA AUSTIN MD Hepatitis Panel ([id number])2020-06-14 00:00:00 Test Item Value Reference Range Interpretation Comments HEPATITIS A IGM NON-REACTIVE N For addition al (test code = information, pl ease refer 33344-2) tohttp://ubigrate/ faq/FYU294 (This link is b eing provided for informational/e ducational purposes only.) HEPATITIS B NON-REACTIVE N SURFACE ANTIGEN (test code = 5196-1) HEPATITIS B CORE NON-REACTIVE N ANTIBODY (IGM) (test code = 04079-4) HEPATITIS C NON-REACTIVE N ANTIBODY (test code = 95027-1) SIGNAL TO CUT-OFF 0.04 N HCV antibo dy was (test code = [place] [address]-7) laboratoryevide nce of HCV infection.In mo st cases, no further acti on is required. Howev er,if recent HCV expo sure is suspected, a te st for HCV RNA(test code 3 5645) is suggested.For a dditional information ple ase refer tohttp://ubigrate/ faq/FAQ22v 1(This link is being provided for informational/e ducational purposes only.) Test Performed at:[facility] [id number] [place] [address] BLANCA AUSTIN MD PAP IG AND HPV HIGH RISK DNA DETECTION WI/ REFLEX TO HPV GENOTYPES 16 AND 18 ([id number])2020-06-14 00:00:00 Test Item Value Reference Range Interpretation Comments CLINICAL SEE NOTE N None given INFORMATION: (test code = CLINICAL INFORMATION:) LMP: (test code = SEE NOTE N [id number] LMP:) PREV. PAP: (test SEE NOTE N NONE GIVEN code = PREV. PAP:) PREV. BX: (test SEE NOTE N NONE GIVEN code = PREV. BX:) SOURCE: (test SEE NOTE N Cervix, Endoce rvix code = SOURCE:) STATEMENT OF SEE NOTE N Satisfactory fo r ADEQUACY: (test evaluation.E ndocervical/ code = STATEMENT transformat ion zone OF ADEQUACY:) component abse nt. INTERPRETATION/RE SEE NOTE N Negative f or SULT: (test code intraepithe lial lesion = or malignancy. INTERPRETATION/RE SULT:) INFECTION: (test SEE NOTE N Trichomonas vaginalis code = identified. INFECTION:) COMMENT: (test SEE NOTE N This case cou ld not be code = COMMENT:) evaluated w [facility] computerassiste d technology. The slide was manuallyscr eened according to jagdish ortiz procedures. REVENUE STAMPER: SEE NOTE N DXG, CT( CP)CT (test code = Screening Locat ion: REVENUE STAMPER: Gerardo Tinoco [id number] [place] [address] [id number] (test SEE NOTE N EXPLANATORY N OTE:The Pap code = 26225539) is a screen ing test for cervical cancer . It isnot a diagnos tic test and is subject to false negativeand fal se positive result s. It is most reliable w hen asatisfactory s ample, regularly obtai jaxon, is submittedwith r elevant clinical findin gs and history, and wh enthe Pap result is evalu ated along with hist oric andcurrent clin ical information. HPV mRNA E6/E7 Not Detected N This test was performed (test code = HPV using the A PTIMA HPV mRNA E6/E7) Assay ([employer]This assa y detects E6/E7 viral mes senger RNA (mRNA) from 14high-risk HPV types (16,18,31,33,35 ,39,45,51 ,52,56,58,59,66 ,68).The analytical perf ormance characteristics ofthis assay have been determined by [employer]. The modifications h ave not beencleared or approved by the FDA. Thi s assay hasbeen validat ed pursuant to the CLIA regulationsand is used for clinical purposes.Test P erformed at:[facility] [id number] [facility] [address] BLANCA AUSTIN MD RPR (RAPID PLASMA REAGIN) ([id number])2020-06-14 00:00:00 Test Item Value Reference Range Interpretation Comments RPR (DX) W/REFL TITER NON-REACTIVE N Test P erformed AND CONFIRMATORY at:[facility] (test code = [address]) [place] [address] BLANCA AUSTIN MD Chlamydia/GC Amplification(APTIMA SWAB) ([id number])2020-06-14 00:00:00 Test Item Value Reference Range Interpretation Comments CHLAMYDIA NOT DETECTED N TRACHOMATIS RNA, TMA, UROGENITAL (test code = CHLAMYDIA TRACHOMATIS RNA, TMA, UROGENITAL) NEISSERIA NOT DETECTED N GONORRHOEAE RNA, TMA, UROGENITAL (test code = NEISSERIA GONORRHOEAE RNA, TMA, UROGENITAL) 69994684 (test code SEE NOTE N The anal ytical = 80170778) performance characteristics of thisassay, when used to test SurePat h(TM) specimens have beendetermined by [employer] cs. The modifications h avenot been cleared or approved by the FDA. This assay hasb een validated pursu ant to the CLIA regula tions and isused for clinical purpos es.For additional information, pl ease refer tohttps://educa tion.[employer]. [employer]/faq /OTZ221(This li nk is being provided for information/edu cationa l purposes only .)Test Performed at:[facility] [id number] [place] [address] BLANCA AUSTIN MD HIV-1 AG W/HIV-1 & HIV-2 AB ([id number])2020-06-14 00:00:00 Test Item Value Reference Range Interpretation Comments HIV AG/AB, NON-REACTIVE N HIV-1 antigen a nd 4TH GEN (test HIV-1/HIV-2 an tibodies were code = HIV notdetected. Th ere is no AG/AB, 4TH laboratory evid ence of GEN) HIVinfection.PL EASE NOTE: This informatio n has been disclosed toyou from records whose confident iality may beprotected by state law. If your state requ ires suchprotection, then the state law prohi bits you frommaking any further disclosure of t he informationwith out the specific writte n consent of the personto om it pertains, or as otherwise permitted by nilda yoder.A general authorization f or the release of medi cheri orother information is NOT sufficient for this purpose.For add itional information ple ase refer tohttp://[employer]at 4Home/faq /QVV628(This link is being p rovided for informational/e ducational purposes only.) The performance of this assay has not been clinicallyvalid ated in patients less t sesay 2 years old.Test Perfor med at:[facility] [id number] [place] [address] BLANCA AUSTIN MD Hepatitis Panel ([id number])2020-06-14 00:00:00 Test Item Value Reference Range Interpretation Comments HEPATITIS A IGM NON-REACTIVE N For addition al (test code = information, pl ease refer 48773-2) tohttp://[employer]at [employer]/ faq/AFX231 (This link is b eing provided for informational/e ducational purposes only.) HEPATITIS B NON-REACTIVE N SURFACE ANTIGEN (test code = 5196-1) HEPATITIS B CORE NON-REACTIVE N ANTIBODY (IGM) (test code = 28058-9) HEPATITIS C NON-REACTIVE N ANTIBODY (test code = 50587-0) SIGNAL TO CUT-OFF 0.04 N HCV antibo dy was (test code = [place] [address]-8) laboratoryevide nce of HCV infection.In mo st cases, no further acti on is required. Howev er,if recent HCV expo sure is suspected, a te st for HCV RNA(test code 3 5645) is suggested.For a dditional information ple ase refer tohttp://educat ion.[employer]/ faq/FAQ22v 1(This link is being provided for informational/e ducational purposes only.) Test Performed at:[facility] [id number] [place] [address] BLANCA AUSTIN MD - XR KNEE 3 V [id number] 19:04:00 [facility]END[facility]X : 1975 Sex: F FAX: Malgorzata Dixon MUNDO [phone] [place]: E St: PRE Patient Name: ZONIA HENDRIX Unit No: [id number] EXAMS: CPT CODE: [id number] XR KNEE 3 V LT [address] EXAM: - XR KNEE 3 V LT HISTORY: PAIN POST FALL COMPARISON: None available time of interpretation. FINDINGS: Frontal, oblique, and lateral views of the left knee are provided. No acute fracture or malalignment. No significant knee joint effusion. Small medial and patellofemoral compartment osteophytes are noted. No soft tissue findings are apparent. IMPRESSION: No acute fracture. at 1904 Reported and signed by: Leighton Ray MD CC: Malgorzata Dixon NP Dictated Date/Time: 05/03/2020 (1903)Technologist: Jazlyn Bartholomew Transcribed Date/Time: 05/03/2020 (1903) By: [email or web address] Orig Print D/T: S: 05/03/2020 (1906) [facility] [place] NAME: ZONIA HENDRIX [address] [place] [address] PHYS: Malgorzata Perez NP [place], [place] [address] : 1975 AGE: 44 SEX: F LOC: BMARYJO PHONE #: [phone] EXAM DATE: 05/03/2020 STATUS: PRE ER FAX #: [phone] RAD NO: DC Dt: PAGE 1 Signed ReportAG STREP GROUP A (THROAT)2019-07-09 21:58:00 Test Item Value Reference Range Interpretation Comments AG STREP GROUP A NEG SCREEN NEG STREP ANTI GEN (THROAT) (test SCREENING:Ant igen code = STREPA) screening roxane t; suggest confirmation by culture.INTERPR ETATION OF STREP ANTIGEN R ESULTS:WHEN STREP GROUP A A NTIGEN IS NOT DETECTED, T HE NEGATIVERESULT DOES NOT RULE OUT THE WA ESENCE OF STREP GROUP A.W HEN STREP GROUP A ANTIGEN IS DETECTED, THE P OSITIVE RESULTIS SIGNIF ICANT. NEGATIVE RESULT S REFLEX A CULTURE. FORNEG ATIVE RESULTS A CULTU RE IS IN PROGRESS, RESUL T TO FOLLOW. - XR CHEST 2 [id number] 21:47:00 FAX: Emile Jewell [phone] [place]: E St: PRE Patient Name: ZONIA HENDRIX Unit No: [id number] EXAMS: CPT CODE: [id number] XR CHEST 2 V 09382 DICTATION LOCATION: H48 HISTORY: Female, 43 years of age with fever and chills EXAM: 2 VIEW CHEST X-RAY COMPARISON: None COMMENT: PA and lateral views are provided. No acute infiltrate or effusion is seen. Cardiomediastinal silhouette is within normal limits. No acute bony abnormalities. IMPRESSION: No acute cardiopulmonary disease. at 2147 Reported and signed by: Aimee Iglesias MD CC: Emile WATERS Dictated Date/Time: 07/09/2019 (2146)Technologist: Pam Abbasi Transcribed Date/Time: 07/09/2019 (2146)By: Jose Orig Print D/T: S: 07/09/2019 (2149) [facility] NAME: ZONIA HENDRIX [address] [place] [address] PHYS: Emile Morales [place], [place] [address] : 1975 AGE: 43 SEX: F LOC: B.ERS PHONE #: [phone] EXAM DATE: 07/09/2019 STATUS: PRE ER FAX #: [phone] RAD NO: DC Dt: PAGE 1 Signed Report Notes Date/Time Note Provider Source 2020-11-04 17:25:00-00:00 [facility] ([facility]) DT History Physical REPORT#:[id number] REPORT STATUS: Signed DATE:11/04/20 TIME: 1724 PATIENT: ZONIA HENDRIX UNIT #: [id number] ROOM/BED: [facility] : [birth year] AGE: 45 SEX: F ATTEND: Dustin Dc MD ADM AUTHOR: Dustin Dc MD * ALL edits or amendments must be made on the el [employer]/computer document * History Physical History Physical History and physical Date of admission 11/04/2020 Presentation Abdominal pain History of presenting illness This is a 45-year-old female who present s to the emergency room complaining of abdominal pain that started this morning when sh e woke up. Patient reports an episode of diarrhea that was watery and loose. Patient states she then went to work and felt the need to defecate again but had a normal solid stool. Patient states after that bowel movement she developed e pigastric abdominal pain and felt diaphoretic. Patient states she bec sp extremely nauseated but was unable to vomit. Patient now complaining of continued a bdominal pain. Patient has a known history of abdominal hernia for more than 20 years, ovarian cyst, and gallstones. Patient denies associated fever, hea dache, chest pain, ripping tearing pain to her back, dysuria, or other symp toms. A 14 point systemic review was completed and the pertinent positives are as mentioned in the HPI. Medical and surgical history as mentioned above Unremarkable social and family history Physical examination Temperature 37.1 pulse rate 80 blood pre ssure 140/75 bedside pulse oximetry 98 on room air General appearance: alert, awake, obese Head/Eyes: atraumatic, EOMI ENT: moist mucosal membranes Neck: grossly normal Cardiovascular: S1 S2 Respiratory: aerating well Abdomen: non-tender, soft, r ight lower quadrant of the abdomen has a protrusion which is nontender. Parsons sign negative Extremities: moves all, no edema Neuro/WORKING MANAGER: no focal neuro deficits Skin: dry Psychiatry: normal affect Laboratory Tests: 11/04 11/04 1441 1303 Chemistry Sodium (133 - 144 mmol/L) 137.0 Potassium (3.5 - 5.1 mmol/L) 3.7 Chloride (95 - 105 mmol/L) 108 H Carbon Dioxide (21 - 32 mmol/L) 24 Anion Gap (4.0 - 15.0 GAP calc) 5.0 BUN (7 - 18 MG/DL) 13 Creatinine (0.55 - 1.30 MG/DL) 0.72 Glucose (70 - 110 MG/DL) 107 Calcium (8.5 - 10.1 MG/DL) 8.8 Total Bilirubin (0.00 - 1.00 MG/DL) 0.57 Direct Bilirubin (0.00 - 0.30 MG/DL) 0.14 Indirect Bilirubin (0.2 - 1.3 MG/DL) 0.43 AST (15 - 37 Unit/L) 18 ALT (12 - 78 Unit/L) 28 Total Alk Phosphatase (45 - 117 Unit/L) 69 Total Protein (6.4 - 8.2 G/DL) 8.0 Albumin (3.4 - 5.0 G/DL) 4.0 Lipase (114 - 286 Unit/L) 61 L Specimen Appearance (1 NORMAL Index/DL) 1 HITESH L <2 MG Specimen Hemolysis (1 NORMAL Index/DL) 1 NORMAL <10 MG Hematology WBC (4.1 - 12.1 K/mm3) 7.0 RBC (3.8 - 5.5 M/mm3) 3.29 L Hgb (10.6 - 15.8 G/DL) 6.8 L Hct (31.8 - 47.4 %) 25.6 L MCV (80.1 - 101.1 fL) 77.8 L MCH (25.3 - 35.3 pg) 20.7 L MCHC (32.7 - 35.1 G/DL) 26.6 L RDW (12.2 - 16.4 %) 18.3 H Plt Count (155 - 337 K/mm3) 211 MPV (6.8 - 11.2 fL) 10.3 Platelet Estimate (ADEQUATE ON SCAN) ADEQ Polychromasia (NONE ON SCAN) SLIGHT Hypochromasia (NONE ON SCAN) MOD H Anisocytosis (NONE ON SCAN) SLIGHT Stomatocytes (NONE ON SCAN) RARE Serology SARS-CoV-2 Ag (Rapid) (Neg) Negative 11/04 1258 Urines Urine Color (YELLOW DESCRIPT) LIGHT-YELLOW Urine Appearance (CLEAR DESCRIPT) CLEAR Urine pH (4.6 - 8.0 pH UNITS) 6.0 Ur Specific Beason (1.001 - 1.035 SG) 1.019 Urine Protein (<30 (1+) mg/dL) 10 (TRACE) H Urine Glucose (UA) (0 (NORMAL) mg/dL) NORMAL (0 ) Urine Ketones ((NEG) 0 mg/dL) NEGATIVE (0) Urine Blood (0 (NEG) mg/dL) 1.00 (3+) H Urine Nitrite (NEG SCREEN) NEGATIVE (0) Urine Bilirubin ((NEG) 0 mg/dL) NEGATIVE (0.0) Urine Urobilinogen (<2.0 (1+) mg/Dl) NORMAL (0) Ur Leukocyte Esterase ((NEG) 0 Leuk/mcL) NEGATI VE (0) Urine RBC (0 - 3 #RBC/HPF) >100 H Urine WBC (0 - 3 #WBC/HPF) 0-3 Ur Squamous Epith Cells (NONE - SQepi /UL) RARE >0 Urine Mucus (NONE /LPF) RARE Urine Culture Screen (Cult byWBC Criteria) Crit NOTmet CULT-N/A Urine HCG, Qual (NEG) NEGATIVE Urine Comment (SpecComment NoteSPEC) CLEAN CATC H SPEC Recent Impressions: ULTRASOUND - US ABDOMEN COMPLETE 11/04 1303 Report Impression - Status: SIGNED Entered: 11/04/2020 1349 IMPRESSION: 1. Cholelithiasis. No sonographic evidence of ac chilkat cholecystitis or biliary dilatation/obstruction. 2. Minimal hepatic steatosis. No focal hepatic l esions noted sonographically. 3. Additional targeted imaging of the right lowe r quadrant demonstrates a bowel-containing hernia. Correlat e clinically on physical exam and consider further evaluation wi CT if it is clinically warranted. Impression By: [email or web address] - Sylvie Chacon MD CAT SCAN - CT ABD PELVIS W/CONT 11/04 1427 Report Impression - Status: SIGNED Entered: 11/04/2020 1509 IMPRESSION: 1. Large right lower quadrant hernia through the abdominal wall defect measuring 5 cm. Hernia contains small and large bowel loops. No bowel obstruction. No complication to suggest strangul ation or incarceration. 2. Stones throughout the gallbladder measuring u p to 9 mm. 3. Splenomegaly. Impression By: [email or web address] - Chencho Camarena MD Assessment and plan Abdominal pain. Etiology unclear. Highly unlikel y that it is related to patient's chronic conditions like large right lo wer quadrant hernia or gallstones. Patient also has a history of ovaria n cyst but that is also an unlikely cause for her abdominal pain and sympto m. Patient most likely has a viral gastroenteritis which needs supportive car e. We will continue with that overnight and monitor patient. If patient's pain becomes specific for a neuropathy above mentioned conditions then we wi ll consider getting surgical service as an inpatient otherwise patient will f ollow-up as an outpatient. Anemia. Patient admits having menorrhagia. This is nothing new for the patient. Abdominal ultrasound reviewed. 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 Iron supplementation upon discharge GI and DVT prophylaxis Plan of care discussed with the patient, family at bedside and nursing staff Electronically Signed by Dustin Dc MD on 10/31 at 1418 RPT #:[id number] END OF REPORT 2020-11-04 12:57:00-00:00 [facility] ([facility]) EMERGENCY PROVIDER REPORT REPORT#:[id number] REPORT STATUS: Signed DATE:11/04/20 TIME: 1257 PATIENT: ZONIA HENDRIX UNIT #: [id number] ROOM/BED: [place] [address] AGE: 45 SEX: F PCP PHYS: No Primary or Family P hysician SERVICE AUTHOR: Erin Burgess WORKING MANAGER * ALL edits or amendments must be made on the [employer]/computer document * Erin Burgess. 11/04/20 1257: HPI-Abd Pain F Under 40 Free Text HPI Notes Free Text HPI Notes 45-year-old female presents to the emergency room complaining of abdominal pain that started this morning when she woke up. Fanny ent reports an episode of diarrhea that was watery and loose. Patient stat es she then went to work and felt the need to defecate again but had a normal solid stool. Patient states after that bowel movement she developed epigastr ic abdominal pain and felt diaphoretic. Patient states she became extremely nauseated but was unable to vomit. Patient now complaining of continued abdo hardy pain. Past medical history is significant for 3 C-sections, abdomin al hernia, ovarian cyst, and gallstones. Patient denies associated fever, hea dache, chest pain, ripping tearing pain to her back, dysuria, or other symp toms. General Confirmed Patient Yes Patient Type New patient Initial Greet Date/Time 11/04/20 1237 Presentation Chief Complaint Abdominal pain, Diarrhea mild, N ausea Hx Obtained From Patient Onset Occurred Today Symptom Duration Since onset Progression since Onset Unchanged Caused by No trauma by history Location Epigastric Quality Painful Radiation Does not radiate. Associated with Reports: Back pain, Diarrhea, Nausea. Denies: An orexia, Chest pain, Chills, Constipation, Dysuria, Fever, Hematemesis, Hemat ochezia, Hematuria, Melena, Shortness of breath, Urinary frequency, Urinary retention, Urinary tract symptoms, Vaginal bleeding, Vaginal discharge, V omiting. Exacerbated by Nothing Relieved by Nothing Context /Sexual Hx Last Menstrual Period 11/03/20 Risk-Abd Pain F Under 40 )( Ectopic Risk factors reviewed Coronary Artery Disease Risk factors reviewed Thoracic Aortic Dissection Risk factors reviewed Review of Systems ROS Statements All systems rev neg except as marked. Focused Review of Systems Constitutional Denies: Chills, Fatigue, Fever, Lethargy, Malais e, Recent wt loss, Weakness - generalized. Respiratory Denies: Cough, non-productive, Cough, productive , Dyspnea on exertion, Hemoptysis, Parox nocturnal dyspnea, Pleuritic p ain, Shortness of breath, Wheezing. Cardiovascular Denies: Chest pain, Dyspnea on exertion, Edema, Orthopnea, Palpitations, Parox nocturnal dyspnea, Syncope. GI Reports: Abdominal pain, Diarrhea, Nause a. Denies: Anorexia, Belching, Bloody/ tarry stool, Constipation, D ysphagia, Hematemesis, Hematochezia, Mucousy stool, Melena, Rectal pain, Vomiting. Female Denies: Dysuria, Flank pain, Hematuria, Incontin ence, Nocturia, Pelvic pain, , Urinary frequency, Urinary urgency, Ur ination decreased, Urination increased, Vaginal bleeding - abnl, Vaginal disc harge. Musculoskeletal Denies: Back pain, Extremity pain, Extremity swe lling, Joint pain, Joint swelling, Lumbar pain, Myalgia, Neck pain, Thora cic pain. Additional Review of Systems Ears/Nose/Throat Denies: Ear drainage R, Ear drainage L, Ear drainage bilat, Ear ringing R, Ear ringing L, Ear ringing bilat , Earache R, Earache L, Earache bilat, Hearing loss R, Hearing loss L, Hearing loss bilat, Mouth nancy n, Nasal congestion, Nose bleeding, Sinus problem, Sor e throat, Throat pain, Throat swelling, Tongue pain, Tongue swelling, Toothache, Voice change. Skin Denies: Abrasion, Abscess, Burn, Contusion, Diap horesis, Erythema, Itching, Jaundice, Laceration, Rash, Swelling, Ulceration . Neurologic Denies: Abnormal movement, Bladder dysfu nction, Bowel dysfunction, Change LOC, Confusion, Dizziness, Focal weakness, Generalize d weakness, Headache, Lightheaded, Numbness, Problem walking, Seizure, Shaking, Slurred speech, Spinning sensation, Syncope, Tingling, Unable to speak, Vision change. Past Medical History - Adult Stated Complaint ABD PAIN, EPIGASTRIC, HASLOWER RIGHT HERNIA Allergies Coded Allergies: No Known Allergies (11/04/20) Home Medications Discontinued Scripts IBUPROFEN (MOTRIN) 600 MG PO Q8HPRN PRN PAIN IBUPROFEN (MOTRIN) 600 MG PO Q8HPRN PRN PAIN #8 TABS Prov: 05/03/20 DC: 11/04/20 1308 Therapy completed Reported Medications No Known Home Medications Additional Medical History sciatic nerve Additional Surgical History Smoking status: Smoking status for patients 13 years old or old er: Current every day smoker Ambulatory Status Independent Physical Exam Vital Signs Vital Signs First Documented: Result Date Time Pulse Ox 100 11/04 1236 B/P 166/74 11/04 1236 B/P Mean 104 11/04 1236 Temp 37.3 11/04 1236 Pulse 91 11/04 1236 Resp 18 11/04 1236 O2 Delivery Room air 11/04 1312 Last Documented: Result Date Time Pulse Ox 100 11/04 1427 B/P 153/72 11/04 1427 B/P Mean 99 11/04 1427 O2 Delivery Room air 11/04 1427 Temp 37.1 11/04 1427 Pulse 85 11/04 1427 Resp 16 11/04 1427 Review of Vital Signs Reviewed Focused PE General/Const General/Const Awake, Alert , No acute distress, Well appearing, Well developed , Well hydrated, Well nourished, Cooperative, No t toxic appearing MS Head Head Atraumatic, Normocephalic Eyes Eyes Atraumatic, EOMI Ears/Nose/Throat Ears/Nose/Throat Atraumatic, Airway patent, Muc ous membranes moist, Pharynx NL Resp/Chest Respiratory/Chest Atraumatic, Breath sounds NL, Breath sounds = bilat, No respiratory distress Cardiovascular Cardiovascular Heart rate NL, Regular r hythm, Heart sounds NL, Cap refill not delayed, Peripheral circulation NL, Pulses = tim aterally Abdomen/GI Abdomen/GI Atraumatic, Soft Text/Dict Notes Large hernia right lower quadrant Tenderness/Guarding/Rebound Tender RUQ, Tender epigastric. Organomegaly/Mass/Hernia Hernia is reducible, Hernia is tender. Negative : Hernia is erythematous. MS Back Back Atraumatic, Inspection NL, Full range of m otion, Painless range of motion, Non-tender, No CVA tenderness Skin Skin Atraumatic, Color NL, No rash, War m, Dry, Intact, Turgor NL, No swelling Neurologic Neurologic Oriented X3, Speech NL, No motor def icits, No sensory deficits, Cerebellar NL, Memory NL, Gait NL Interpretation Diagnostics Lab Results Interpretation Results Laboratory Tests 11/04/20 1303: [Embedded Image Not Available] Laboratory Tests: 11/04 1303 Chemistry Sodium (133 - 144 mmol/L) 137.0 Potassium (3.5 - 5.1 mmol/L) 3.7 Chloride (95 - 105 mmol/L) 108 H Carbon Dioxide (21 - 32 mmol/L) 24 Anion Gap (4.0 - 15.0 GAP calc) 5.0 BUN (7 - 18 MG/DL) 13 Creatinine (0.55 - 1.30 MG/DL) 0.72 Glucose (70 - 110 MG/DL) 107 Calcium (8.5 - 10.1 MG/DL) 8.8 Total Bilirubin (0.00 - 1.00 MG/DL) 0.57 Direct Bilirubin (0.00 - 0.30 MG/DL) 0.14 Indirect Bilirubin (0.2 - 1.3 MG/DL) 0.43 AST (15 - 37 Unit/L) 18 ALT (12 - 78 Unit/L) 28 Total Alk Phosphatase (45 - 117 Unit/L) 69 Total Protein (6.4 - 8.2 G/DL) 8.0 Albumin (3.4 - 5.0 G/DL) 4.0 Lipase (114 - 286 Unit/L) 61 L Specimen Appearance (1 NORMAL Index/DL) 1 HITESH L <2 MG Specimen Hemolysis (1 NORMAL Index/DL) 1 NORMAL <10 MG Hematology WBC (4.1 - 12.1 K/mm3) 7.0 RBC (3.8 - 5.5 M/mm3) 3.29 L Hgb (10.6 - 15.8 G/DL) 6.8 L Hct (31.8 - 47.4 %) 25.6 L MCV (80.1 - 101.1 fL) 77.8 L MCH (25.3 - 35.3 pg) 20.7 L MCHC (32.7 - 35.1 G/DL) 26.6 L RDW (12.2 - 16.4 %) 18.3 H Plt Count (155 - 337 K/mm3) 211 MPV (6.8 - 11.2 fL) 10.3 Platelet Estimate (ADEQUATE ON SCAN) ADEQ Polychromasia (NONE ON SCAN) SLIGHT Hypochromasia (NONE ON SCAN) MOD H Anisocytosis (NONE ON SCAN) SLIGHT Stomatocytes (NONE ON SCAN) RARE 11/04 1258 Urines Urine Color (YELLOW DESCRIPT) LIGHT-YELLOW Urine Appearance (CLEAR DESCRIPT) CLEAR Urine pH (4.6 - 8.0 pH UNITS) 6.0 Ur Specific Beason (1.001 - 1.035 SG) 1.019 Urine Protein (<30 (1+) mg/dL) 10 (TRACE) H Urine Glucose (UA) (0 (NORMAL) mg/dL) NORMAL (0 ) Urine Ketones ((NEG) 0 mg/dL) NEGATIVE (0) Urine Blood (0 (NEG) mg/dL) 1.00 (3+) H Urine Nitrite (NEG SCREEN) NEGATIVE (0) Urine Bilirubin ((NEG) 0 mg/dL) NEGATIVE (0.0) Urine Urobilinogen (<2.0 (1+) mg/Dl) NORMAL (0 ) Ur Leukocyte Esterase ((NEG) 0 Leuk/mcL) NEGATI VE (0) Urine RBC (0 - 3 #RBC/HPF) >100 H Urine WBC (0 - 3 #WBC/HPF) 0-3 Ur Squamous Epith Cells (NONE - SQepi /UL) RARE >0 Urine Mucus (NONE /LPF) RARE Urine Culture Screen (Cult byWBC Criteria) Crit NOTmet CULT-N/A Urine HCG, Qual (NEG) NEGATIVE Urine Comment (SpecComment NoteSPEC) CLEAN CATC H SPEC Recent Impressions: ULTRASOUND - US ABDOMEN COMPLETE 11/04 1303 Report Impression - Status: SIGNED Entered: 11/04/2020 5347 IMPRESSION: 1. Cholelithiasis. No sonographic evidence of ac chilkat cholecystitis or biliary dilatation/obstruction. 2. Minimal hepatic steatosis. No focal hepatic l esions noted sonographically. 3. Additional targeted imaging of the right lowe r quadrant demonstrates a bowel-containing hernia. Correlat e clinically on physical exam and consider further evaluation wi CT if it is clinically warranted. Impression By: [email or web address] - Sylvie Chacon MD CAT SCAN - CT ABD PELVIS W/CONT 11/04 1427 Report Impression - Status: SIGNED Entered: 11/04/2020 1509 IMPRESSION: 1. Large right lower quadrant hernia through the abdominal wall defect measuring 5 cm. Hernia contains small and large bowel loops. No bowel obstruction. No complication to suggest strangul ation or incarceration. 2. Stones throughout the gallbladder measuring u p to 9 mm. 3. Splenomegaly. Impression By: [email or web address] - Chencho Camarena MD Lab Imaging Statement Laboratory radiographic studies reviewed and con sidered in the medical decision-making. ECG #1 Interpretation Date 11/04/20 Time 1243 Interpreted by and reviewed by me, ED physician NL ECG Interpretation Normal rate, Normal sinus rhythm, No STEMI Rate 96 Rhythm NSR with sinus arrhythmia Re-Evaluation MDM )( Re-Evaluation/Progress #1 Text/Dict Note Discussed hemoglobin of 6.8 with patient. Joan t denies any known history of anemia. Patient states she had normal blood work performed in June 2020. Patient denies any blood in her bowels and states she has heavy cycles where she passes blood clots. Patient is currently on her cycle. Patient denies ever needing a blood transfusion. Discussed n eed for admission with transfusion and she verbalized understanding and agreement. Stil l pending CT and ultrasound results. Time of Re-Eval 1341 )( Re-Eval Status Unchanged ED Course Medication(s) Ordered Medication(s) Ordered: Central Nervous System Agents Sig/Elizabeth Start time Last Medication Dose Route Stop Time Status Admin Morphine Sulfate 4 MG X1ED STA 11/04 1257 DC IV 11/04 1258 1312 Gastrointestinal Drugs Sig/Elizabeth Start time Last Medication Dose Route Stop Time Status Admin Ondansetron HCl 4 MG Q6H PRN PRN 11/04 1430 AC IV 11/05 1326 Pantoprazole Sodium 80 MG X1ED STA 11/04 1401 A C Sodium Chloride 100 ML IV 11/05 0000 Ondansetron HCl 4 MG X1ED PRN PRN 11/04 1300 DC 11/04 IV 1312 Patient Discharge Departure Vital Signs/Condition Vital Signs First Documented: Result Date Time Pulse Ox 100 11/04 1236 B/P 166/74 11/04 1236 B/P Mean 104 11/04 1236 Temp 37.3 11/04 1236 Pulse 91 11/04 1236 Resp 18 11/04 1236 O2 Delivery Room air 11/04 1312 Last Documented: Result Date Time Pulse Ox 100 11/04 142 B/P 153/72 11/04 142 B/P Mean 99 11/04 142 O2 Delivery Room air 11/04 142 Temp 37.1 11/04 1427 Pulse 85 11/04 1427 Resp 16 11/04 1427 All vital signs available at the time of this en try have been reviewed. Condition Improved Clinical Impression Clinical Impression Primary Impression: Anemia Secondary Impressions: Abdominal pain Disposition Decision Admit Admit Physician Name Dustin Dc MD Admit Physician Hospitalist Request Time 1420 Request Date 11/04/20 )( Admission Accepts Yes )( Accepted Time 1420 )( Accepted Date 11/04/20 Call Information will see patient Discharge/Care Plan Counseled Regarding Diagnosi s, Lab results, Imaging studies, Need for admission (Auto) Prescriptions Current Visit Scripts No Known Home Medications Admit Note I have spoken with the patie nt and/or caregivers. I have explained the patient's condition, diagnoses and tex atment plan based on the information available to me at this time. I have answered the patient's and/ or caregiver's questions and addressed any concerns. The patient and/or careg elder have as good an understanding of the patient 's diagnosis, condition and treatment plan as can be expected at this point. The patient has been stabilized within the capability of the emergency department. The patient wi ll be transported for further care and management or will be moved to an observation or inpatient service. I have communicated with the staff or medical p ractitioner taking over this patient's care. Quality Measures Preg Test for Women w/Abd Pa in Female age 14-50, Complaint of abdominal pn, Any preg test ordered Dain Bush 11/04/20 1618: Patient Discharge Departure Supervising Physician Note MidLv/Doc Saw Pt 2 I have personally interviewed and examined the p atient. All charts, labs, and imaging studies were reviewe d. I agree with this PA/therapist's assistant findings, exam and plan. Patient presents with epiga stric pain and tenderness started this morning prior to arrival. She has moderate tenderness on my exam without guarding or rebound. She has a large right lower quadrant hernia that is not focally tender however. This has been present for some time per the pat ient. Clear lungs, regular cardiac exam, and alert and oriented x3 without distress. Her ED work-up demonstrates significant anemia with a h emoglobin of 6.6. This paired with her epigastric pain is concerning for possible pepti c ulcer disease with occult bleeding. She denies black stools or tarry stool s. Protonix bolus given, packed cells/2 units ordered , and we will admit for further evaluation and work- up. Plan for admission discussed with patient as well peer Electronically Signed by Dain Bush MD on 0 11/04/20 at 1619 RPT #:[id number] END OF REPORT 2020-11-04 12:57:00-00:00 [facility] ([facility]) EMERGENCY PROVIDER REPORT REPORT#:[id number] REPORT STATUS: Signed DATE:11/04/20 TIME: 1257 PATIENT: ZONIA HENDRIX UNIT #: [id number] ROOM/BED: [place] [address] AGE: 45 SEX: F PCP PHYS: No Primary or Family Ph ysician SERVICE AUTHOR: Erin Burgess WORKING MANAGER * ALL edits or amendments must be made on the [employer]/computer document * Erin Burgess. 11/04/20 1257: HPI-Abd Pain F Under 40 Free Text HPI Notes Free Text HPI Notes 45-year-old female presents to the emergency room complaining of abdominal pain that started this morning when she woke up. Fanny ent reports an episode of diarrhea that was watery and loose. Patient stat es she then went to work and felt the need to defecate again but had a normal solid stool. Patient states after that bowel movement she developed epigastr ic abdominal pain and felt diaphoretic. Patient states she became extremely nauseated but was unable to vomit. Patient now complaining of continued abdo hardy pain. Past medical history is significant for 3 C-sections, abdomin al hernia, ovarian cyst, and gallstones. Patient denies associated fever, hea dache, chest pain, ripping tearing pain to her back, dysuria, or other symp toms. General Confirmed Patient Yes Patient Type New patient Initial Greet Date/Time 11/04/20 1237 Presentation Chief Complaint Abdominal pain, Diarrhea mild, N ausea Hx Obtained From Patient Onset Occurred Today Symptom Duration Since onset Progression since Onset Unchanged Caused by No trauma by history Location Epigastric Quality Painful Radiation Does not radiate. Associated with Reports: Back pain, Diarrhea, Nausea. Denies: An orexia, Chest pain, Chills, Constipation, Dysuria, Fever, Hematemesis, Hemat ochezia, Hematuria, Melena, Shortness of breath, Urinary frequency, Urinary retention, Urinary tract symptoms, Vaginal bleeding, Vaginal discharge, V omiting. Exacerbated by Nothing Relieved by Nothing Context /Sexual Hx Last Menstrual Period 11/03/20 Risk-Abd Pain F Under 40 )( Ectopic Risk factors reviewed Coronary Artery Disease Risk factors reviewed Thoracic Aortic Dissection Risk factors reviewed Review of Systems ROS Statements All systems rev neg except as marked. Focused Review of Systems Constitutional Denies: Chills, Fatigue, Fever, Lethargy, Malais e, Recent wt loss, Weakness - generalized. Respiratory Denies: Cough, non-productive, Cough, productive , Dyspnea on exertion, Hemoptysis, Parox nocturnal dyspnea, Pleuritic p ain, Shortness of breath, Wheezing. Cardiovascular Denies: Chest pain, Dyspnea on exertion, Edema, Orthopnea, Palpitations, Parox nocturnal dyspnea, Syncope. GI Reports: Abdominal pain, Diarrhea, Nause a. Denies: Anorexia, Belching, Bloody/ tarry stool, Constipation, D ysphagia, Hematemesis, Hematochezia, Mucousy stool, Melena, Rectal pain, Vomiting. Female Denies: Dysuria, Flank pain, Hematuria, Incontin ence, Nocturia, Pelvic pain, , Urinary frequency, Urinary urgency, Ur ination decreased, Urination increased, Vaginal bleeding - abnl, Vaginal disc harge. Musculoskeletal Denies: Back pain, Extremity pain, Extremity swe lling, Joint pain, Joint swelling, Lumbar pain, Myalgia, Neck pain, Thora cic pain. Additional Review of Systems Ears/Nose/Throat Denies: Ear drainage R, Ear drainage L, Ear drainage bilat, Ear ringing R, Ear ringing L, Ear ringing bilat , Earache R, Earache L, Earache bilat, Hearing loss R, Hearing loss L, Hearing loss bilat, Mouth nancy n, Nasal congestion, Nose bleeding, Sinus problem, Sor e throat, Throat pain, Throat swelling, Tongue pain, Tongue swelling, Toothache, Voice change. Skin Denies: Abrasion, Abscess, Burn, Contusion, Diap horesis, Erythema, Itching, Jaundice, Laceration, Rash, Swelling, Ulceration . Neurologic Denies: Abnormal movement, Bladder dysfu nction, Bowel dysfunction, Change LOC, Confusion, Dizziness, Focal weakness, Generalize d weakness, Headache, Lightheaded, Numbness, Problem walking, Seizure, Shaking, Slurred speech, Spinning sensation, Syncope, Tingling, Unable to speak, Vision change. Past Medical History - Adult Stated Complaint ABD PAIN, EPIGASTRIC, HASLOWER RIGHT HERNIA Allergies Coded Allergies: No Known Allergies (11/04/20) Home Medications Discontinued Scripts IBUPROFEN (MOTRIN) 600 MG PO Q8HPRN PRN PAIN IBUPROFEN (MOTRIN) 600 MG PO Q8HPRN PRN PAIN #8 TABS Prov: 05/03/20 DC: 11/04/20 1308 Therapy completed Reported Medications No Known Home Medications Additional Medical History sciatic nerve Additional Surgical History Smoking status: Smoking status for patients 13 years old or old er: Current every day smoker Ambulatory Status Independent Physical Exam Vital Signs Review of Vital Signs Reviewed Focused PE General/Const General/Const Awake, Alert, No acute di stress, Well appearing, Well developed , Well hydrated, Well nourished, Cooperative, No t toxic appearing MS Head Head Atraumatic, Normocephalic Eyes Eyes Atraumatic, EOMI Ears/Nose/Throat Ears/Nose/Throat Atraumatic, Airway patent, Muc ous membranes moist, Pharynx NL Resp/Chest Respiratory/Chest Atraumatic, Breath sounds NL, Breath sounds = bilat, No respiratory distress Cardiovascular Cardiovascular Heart rate NL, Regular r hythm, Heart sounds NL, Cap refill not delayed, Peripheral circulation NL, Pulses = tim aterally Abdomen/GI Abdomen/GI Atraumatic, Soft Text/Dict Notes Large hernia right lower quadrant Tenderness/Guarding/Rebound Tender RUQ, Tender epigastric. Organomegaly/Mass/Hernia Hernia is reducible, Hernia is tender. Negative : Hernia is erythematous. MS Back Back Atraumatic, Inspection NL, Full range of m otion, Painless range of motion, Non-tender, No CVA tenderness Skin Skin Atraumatic, Color NL, No rash, War m, Dry, Intact, Turgor NL, No swelling Neurologic Neurologic Oriented X3, Speech NL, No motor def icits, No sensory deficits, Cerebellar NL, Memory NL, Gait NL Interpretation Diagnostics Lab Results Interpretation Lab Imaging Statement Laboratory radiographic studies reviewed and con sidered in the medical decision-making. ECG #1 Interpretation Date 11/04/20 Time 1243 Interpreted by and reviewed by me, ED physician NL ECG Interpretation Normal rate, Normal sinus rhythm, No STEMI Rate 96 Rhythm NSR with sinus arrhythmia Re-Evaluation MDM Free Text MDM Notes Free Text MDM Notes I consulted with Dr. Bush for management of this patient. Discussed all exam , labs, and CT findings with patient. Wi ll admit for further evaluation of her symptoms. Patient with tende rness to the epigastrium and no tenderness over her hernia. Patient is comfortable with admission. )( Re-Evaluation/Progress #1 Text/Dict Note Discussed hemoglobin of 6.8 with patient. Joan t denies any known history of anemia. Patient states she had normal blood work performed in June 2020. Patient denies any blood in her bowels and states she has heavy cycles where she passes blood clots. Patient is currently on her cycle. Patient denies ever needing a blood transfusion. Discussed n eed for admission with transfusion and she verbalized understanding and agreement. Mark l pending CT and ultrasound results. Time of Re-Eval 1342 )( Re-Eval Status Unchanged Patient Discharge Departure Vital Signs/Condition Condition Improved Clinical Impression Clinical Impression Primary Impression: Anemia Secondary Impressions: Abdominal pain Disposition Decision Admit Admit Physician Name Dustin Dc MD Admit Physician Hospitalist Request Time 1421 Request Date 11/04/20 )( Admission Accepts Yes )( Accepted Time 1421 )( Accepted Date 11/04/20 Call Information will see patient Discharge/Care Plan Counseled Regarding Diagnosi s, Lab results, Imaging studies, Need for admission (Auto) Prescriptions Current Visit Scripts No Known Home Medications Admit Note I have spoken with the patie nt and/or caregivers. I have explained the patient's condition, diagnoses and tex atment plan based on the information available to me at this time. I have answered the patient's and/ or caregiver's questions and addressed any concerns. The patient and/or careg elder have as good an understanding of the patient 's diagnosis, condition and treatment plan as can be expected at this point. The patient has been stabilized within the capability of the emergency department. The patient wi ll be transported for further care and management or will be moved to an observation or inpatient service. I have communicated with the staff or medical p ractitioner taking over this patient's care. Quality Measures Preg Test for Women w/Abd Pa in Female age 14-50, Complaint of abdominal pn, Any preg test ordered Dain Bush 11/04/20 1618: Physical Exam Vital Signs Vital Signs First Documented: Result Date Time Pulse Ox 100 11/04 1236 B/P 166/74 11/04 1236 B/P Mean 104 11/04 1236 Temp 99.1 11/04 1236 Pulse 91 11/04 1236 Resp 18 11/04 1236 O2 Delivery Room air 11/04 1312 Last Documented: Result Date Time Pulse Ox 100 11/04 1427 B/P 153/72 11/04 1427 B/P Mean 99 11/04 1427 O2 Delivery Room air 11/04 1427 Temp 98.8 11/04 1427 Pulse 85 11/04 1427 Resp 16 11/04 1427 Interpretation Diagnostics Lab Results Interpretation Results Laboratory Tests 11/04/20 1303: [Embedded Image Not Available] Laboratory Tests: 11/04 1303 Chemistry Sodium (133 - 144 mmol/L) 137.0 Potassium (3.5 - 5.1 mmol/L) 3.7 Chloride (95 - 105 mmol/L) 108 H Carbon Dioxide (21 - 32 mmol/L) 24 Anion Gap (4.0 - 15.0 GAP calc) 5.0 BUN (7 - 18 MG/DL) 13 Creatinine (0.55 - 1.30 MG/DL) 0.72 Glucose (70 - 110 MG/DL) 107 Calcium (8.5 - 10.1 MG/DL) 8.8 Total Bilirubin (0.00 - 1.00 MG/DL) 0.57 Direct Bilirubin (0.00 - 0.30 MG/DL) 0.14 Indirect Bilirubin (0.2 - 1.3 MG/DL) 0.43 AST (15 - 37 Unit/L) 18 ALT (12 - 78 Unit/L) 28 Total Alk Phosphatase (45 - 117 Unit/L) 69 Total Protein (6.4 - 8.2 G/DL) 8.0 Albumin (3.4 - 5.0 G/DL) 4.0 Lipase (114 - 286 Unit/L) 61 L Specimen Appearance (1 NORMAL Index/DL) 1 HITESH L <2 MG Specimen Hemolysis (1 NORMAL Index/DL) 1 NORMAL <10 MG Hematology WBC (4.1 - 12.1 K/mm3) 7.0 RBC (3.8 - 5.5 M/mm3) 3.29 L Hgb (10.6 - 15.8 G/DL) 6.8 L Hct (31.8 - 47.4 %) 25.6 L MCV (80.1 - 101.1 fL) 77.8 L MCH (25.3 - 35.3 pg) 20.7 L MCHC (32.7 - 35.1 G/DL) 26.6 L RDW (12.2 - 16.4 %) 18.3 H Plt Count (155 - 337 K/mm3) 211 MPV (6.8 - 11.2 fL) 10.3 Platelet Estimate (ADEQUATE ON SCAN) ADEQ Polychromasia (NONE ON SCAN) SLIGHT Hypochromasia (NONE ON SCAN) MOD H Anisocytosis (NONE ON SCAN) SLIGHT Stomatocytes (NONE ON SCAN) RARE 11/04 1258 Urines Urine Color (YELLOW DESCRIPT) LIGHT-YELLOW Urine Appearance (CLEAR DESCRIPT) CLEAR Urine pH (4.6 - 8.0 pH UNITS) 6.0 Ur Specific Beason (1.001 - 1.035 SG) 1.019 Urine Protein (<30 (1+) mg/dL) 10 (TRACE) H Urine Glucose (UA) (0 (NORMAL) mg/dL) NORMAL (0 ) Urine Ketones ((NEG) 0 mg/dL) NEGATIVE (0) Urine Blood (0 (NEG) mg/dL) 1.00 (3+) H Urine Nitrite (NEG SCREEN) NEGATIVE (0) Urine Bilirubin ((NEG) 0 mg/dL) NEGATIVE (0.0) Urine Urobilinogen (<2.0 (1+) mg/Dl) NORMAL (0) Ur Leukocyte Esterase ((NEG) 0 Leuk/mcL) NEGATI VE (0) Urine RBC (0 - 3 #RBC/HPF) >100 H Urine WBC (0 - 3 #WBC/HPF) 0-3 Ur Squamous Epith Cells (NONE - SQepi /UL) RARE >0 Urine Mucus (NONE /LPF) RARE Urine Culture Screen (Cult byWBC Criteria) Cri t NOTmet CULT-N/A Urine HCG, Qual (NEG) NEGATIVE Urine Comment (SpecComment NoteSPEC) CLEAN CATC H SPEC Recent Impressions: ULTRASOUND - US ABDOMEN COMPLETE 11/04 1303 Report Impression - Status: SIGNED Entered: 11/04/2020 1349 IMPRESSION: 1. Cholelithiasis. No sonographic evidence of ac chilkat cholecystitis or biliary dilatation/obstruction. 2. Minimal hepatic steatosis. No focal hepatic l esions noted sonographically. 3. Additional targeted imaging of the right lowe r quadrant demonstrates a bowel-containing hernia. Correlat e clinically on physical exam and consider further evaluation CT if it is clinically warranted. Impression By: [email or web address] - Sylvie Chacon MD CAT SCAN - CT ABD PELVIS W/CONT 11/04 1427 Report Impression - Status: SIGNED Entered: 11/04/2020 1509 IMPRESSION: 1. Large right lower quadrant hernia through the abdominal wall defect measuring 5 cm. Hernia contains small and large bowel loops. No bowel obstruction. No complication to suggest strangul ation or incarceration. 2. Stones throughout the gallbladder measuring u p to 9 mm. 3. Splenomegaly. Impression By: [email or web address] - Chencho Camarena MD Re-Evaluation MDM ED Course Medication(s) Ordered Medication(s) Ordered: Central Nervous System Agents Sig/Elizabeth Start time Last Medication Dose Route Stop Time Status Admin Morphine Sulfate 4 MG X1ED STA 11/04 1257 DC IV 11/04 1258 1312 Gastrointestinal Drugs Sig/Elizabeth Start time Last Medication Dose Route Stop Time Status Admin Ondansetron HCl 4 MG Q6H PRN PRN 11/04 1430 AC IV 11/05 1326 Pantoprazole Sodium 80 MG X1ED STA 11/04 1401 A C 11/04 Sodium Chloride 100 ML IV 11/05 0000 1600 Ondansetron HCl 4 MG X1ED PRN PRN 11/04 1300 DC 11/04 IV 1312 Patient Discharge Departure Vital Signs/Condition Vital Signs First Documented: Result Date Time Pulse Ox 100 11/04 1236 B/P 166/74 11/04 1236 B/P Mean 104 11/04 1236 Temp 99.1 11/04 1236 Pulse 91 11/04 1236 Resp 18 11/04 1236 O2 Delivery Room air 11/04 1312 Last Documented: Result Date Time Pulse Ox 100 11/04 1427 B/P 153/72 11/04 1427 B/P Mean 99 11/04 1427 O2 Delivery Room air 11/04 1427 Temp 98.8 11/04 1427 Pulse 85 11/04 1427 Resp 16 11/04 1427 All vital signs available at the time of this en try have been reviewed. Supervising Physician Note MidLv/Doc Saw Pt 2 I have personally interviewed and examined the p atient. All charts, labs, and imaging studies were reviewe d. I agree with this PA/therapist's assistant findings, exam and plan. Patient presents with epiga stric pain and tenderness started this morning prior to arrival. She has moderate tenderness on my exam without guarding or rebound. She has a large right lower quadrant hernia that is not focally tender however. This has been present for some time per the pat ient. Clear lungs, regular cardiac exam, and alert and oriented x3 without distress. Her ED work-up demonstrates significant anemia with a h emoglobin of 6.6. This paired with her epigastric pain is concerning for possible pepti c ulcer disease with occult bleeding. She denies black stools or tarry stool s. Protonix bolus given, packed cells/2 units ordered , and we will admit for further evaluation and work- up. Plan for admission discussed with patient as well peer Electronically Signed by Dain Bush MD on 0 11/04/20 at 1619 RPT #:[id number] END OF REPORT 2020-11-04 12:57:00-00:00 [facility] ([facility] EMERGENCY PROVIDER REPORT REPORT#:[id number] REPORT STATUS: Signed DATE:11/04/20 TIME: 1257 PATIENT: ZONIA HENDRIX UNIT #: [id number] ROOM/BED: [place] AGE: 45 SEX: F PCP PHYS: No Primary or Family Ph ysician SERVICE AUTHOR: Erin Burgess WORKING MANAGER * ALL edits or amendments must be made on the [employer]/computer document * Erin Burgess. 11/04/20 1257: HPI-Abd Pain F Under 40 Free Text HPI Notes Free Text HPI Notes 45-year-old female presents to the emergency room complaining of abdominal pain that started this morning when she woke up. Fanny ent reports an episode of diarrhea that was watery and loose. Patient stat es she then went to work and felt the need to defecate again but had a normal solid stool. Patient states after that bowel movement she developed epigastr ic abdominal pain and felt diaphoretic. Patient states she became extremely nauseated but was unable to vomit. Patient now complaining of continued abdo hardy pain. Past medical history is significant for 3 C-sections, abdomin al hernia, ovarian cyst, and gallstones. Patient denies associated fever, hea dache, chest pain, ripping tearing pain to her back, dysuria, or other symp toms. General Confirmed Patient Yes Patient Type New patient Initial Greet Date/Time 11/04/20 1237 Presentation Chief Complaint Abdominal pain, Diarrhea mild, N ausea Hx Obtained From Patient Onset Occurred Today Symptom Duration Since onset Progression since Onset Unchanged Caused by No trauma by history Location Epigastric Quality Painful Radiation Does not radiate. Associated with Reports: Back pain, Diarrhea, Nausea. Denies: An orexia, Chest pain, Chills, Constipation, Dysuria, Fever, Hematemesis, Hemat ochezia, Hematuria, Melena, Shortness of breath, Urinary frequency, Urinary retention, Urinary tract symptoms, Vaginal bleeding, Vaginal discharge, V omiting. Exacerbated by Nothing Relieved by Nothing Context /Sexual Hx Last Menstrual Period 11/03/20 Risk-Abd Pain F Under 40 )( Ectopic Risk factors reviewed Coronary Artery Disease Risk factors reviewed Thoracic Aortic Dissection Risk factors reviewed Review of Systems ROS Statements All systems rev neg except as marked. Focused Review of Systems Constitutional Denies: Chills, Fatigue, Fever, Lethargy, Malais e, Recent wt loss, Weakness - generalized. Respiratory Denies: Cough, non-productive, Cough, productive , Dyspnea on exertion, Hemoptysis, Parox nocturnal dyspnea, Pleuritic p ain, Shortness of breath, Wheezing. Cardiovascular Denies: Chest pain, Dyspnea on exertion, Edema, Orthopnea, Palpitations, Parox nocturnal dyspnea, Syncope. GI Reports: Abdominal pain, Diarrhea, Nause a. Denies: Anorexia, Belching, Bloody/ tarry stool, Constipation, D ysphagia, Hematemesis, Hematochezia, Mucousy stool, Melena, Rectal pain, Vomiting. Female Denies: Dysuria, Flank pain, Hematuria, Incontin ence, Nocturia, Pelvic pain, , Urinary frequency, Urinary urgency, Ur ination decreased, Urination increased, Vaginal bleeding - abnl, Vaginal disc harge. Musculoskeletal Denies: Back pain, Extremity pain, Extremity swe lling, Joint pain, Joint swelling, Lumbar pain, Myalgia, Neck pain, Thora cic pain. Additional Review of Systems Ears/Nose/Throat Denies: Ear drainage R, Ear drainage L, Ear drainage bilat, Ear ringing R, Ear ringing L, Ear ringing bilat , Earache R, Earache L, Earache bilat, Hearing loss R, Hearing loss L, Hearing loss bilat, Mouth nancy n, Nasal congestion, Nose bleeding, Sinus problem, Sor e throat, Throat pain, Throat swelling, Tongue pain, Tongue swelling, Toothache, Voice change. Skin Denies: Abrasion, Abscess, Burn, Contusion, Diap horesis, Erythema, Itching, Jaundice, Laceration, Rash, Swelling, Ulceration . Neurologic Denies: Abnormal movement, Bladder dysfu nction, Bowel dysfunction, Change LOC, Confusion, Dizziness, Focal weakness, Generalize d weakness, Headache, Lightheaded, Numbness, Problem walking, Seizure, Shaking, Slurred speech, Spinning sensation, Syncope, Tingling, Unable to speak, Vision change. Past Medical History - Adult Stated Complaint ABD PAIN, EPIGASTRIC, HASLOWER RIGHT HERNIA Allergies Coded Allergies: No Known Allergies (11/04/20) Home Medications Discontinued Scripts IBUPROFEN (MOTRIN) 600 MG PO Q8HPRN PRN PAIN IBUPROFEN (MOTRIN) 600 MG PO Q8HPRN PRN PAIN #8 TABS Prov: 05/03/20 DC: 11/04/20 1308 Therapy completed Reported Medications No Known Home Medications Additional Medical History sciatic nerve Additional Surgical History Smoking status: Smoking status for patients 13 years old or old er: Current every day smoker Ambulatory Status Independent Physical Exam Vital Signs Review of Vital Signs Reviewed Focused PE General/Const General/Const Awake, Alert, No acute di stress, Well appearing, Well developed , Well hydrated, Well nourished, Cooperative, No t toxic appearing MS Head Head Atraumatic, Normocephalic Eyes Eyes Atraumatic, EOMI Ears/Nose/Throat Ears/Nose/Throat Atraumatic, Airway patent, Muc ous membranes moist, Pharynx NL Resp/Chest Respiratory/Chest Atraumatic, Breath sounds NL, Breath sounds = bilat, No respiratory distress Cardiovascular Cardiovascular Heart rate NL, Regular r hythm, Heart sounds NL, Cap refill not delayed, Peripheral circulation NL, Pulses = tim aterally Abdomen/GI Abdomen/GI Atraumatic, Soft Text/Dict Notes Large hernia right lower quadrant Tenderness/Guarding/Rebound Tender RUQ, Tender epigastric. Organomegaly/Mass/Hernia Hernia not reducible. Negative: Hernia is incar cerated, Hernia is strangulated, Hernia is tender, Hernia is erythe matous. MS Back Back Atraumatic, Inspection NL, Full range of m otion, Painless range of motion, Non-tender, No CVA tenderness Skin Skin Atraumatic, Color NL, No rash, War m, Dry, Intact, Turgor NL, No swelling Neurologic Neurologic Oriented X3, Speech NL, No motor def icits, No sensory deficits, Cerebellar NL, Memory NL, Gait NL Interpretation Diagnostics Lab Results Interpretation Lab Imaging Statement Laboratory radiographic studies reviewed and con sidered in the medical decision-making. ECG #1 Interpretation Date 11/04/20 Time 1243 Interpreted by and reviewed by me, ED physician NL ECG Interpretation Normal rate, Normal sinus rhythm, No STEMI Rate 96 Rhythm NSR with sinus arrhythmia Re-Evaluation MDM Free Text MDM Notes Free Text MDM Notes I consulted with Dr. Bush for management of t his patient and he evaluated patient at bedside. Discussed all exam, labs, an d CT findings with patient. Will admit for further evaluation of her symptom s. Patient with tenderness to the epigastrium and no tenderness over h er hernia. Patient is comfortable with admission. )( Re-Evaluation/Progress #1 Text/Dict Note Discussed hemoglobin of 6.8 with patient. Joan chandler denies any known history of anemia. Patient states she had normal blood work performed in June 2020. Patient denies any blood in her bowels and states she has heavy cycles where she passes blood clots. Patient is currently on her cycle. Patient denies ever needing a blood transfusion. Discussed n eed for admission with transfusion and she verbalized understanding and agreement. Stil l pending CT and ultrasound results. Time of Re-Eval 1342 )( Re-Eval Status Unchanged Patient Discharge Departure Vital Signs/Condition Condition Improved Clinical Impression Clinical Impression Primary Impression: Anemia Secondary Impressions: Abdominal pain Disposition Decision Admit Admit Physician Name Dustin Dc Admit Physician Hospitalist Request Time 142 Request Date 11/04/20 )( Admission Accepts Yes )( Accepted Time 142 )( Accepted Date 11/04/20 Call Information will see patient Discharge/Care Plan Counseled Regarding Diagnosi s, Lab results, Imaging studies, Need for admission (Auto) Prescriptions Current Visit Scripts No Known Home Medications Admit Note I have spoken with the patie nt and/or caregivers. I have explained the patient's condition, diagnoses and tex atment plan based on the information available to me at this time. I have answered the patient's and/ or caregiver's questions and addressed any concerns. The patient and/or careg elder have as good an understanding of the patient 's diagnosis, condition and treatment plan as can be expected at this point. The patient has been stabilized within the capability of the emergency department. The patient wi ll be transported for further care and management or will be moved to an observation or inpatient service. I have communicated with the staff or medical p ractitioner taking over this patient's care. Quality Measures Preg Test for Women w/Abd Pa in Female age 14-50, Complaint of abdominal pn, Any preg test ordered Dain Bush 11/04/20 1618: Physical Exam Vital Signs Vital Signs First Documented: Result Date Time Pulse Ox 100 11/04 1236 B/P 166/74 11/04 1236 B/P Mean 104 11/04 1236 Temp 99.1 11/04 1236 Pulse 91 11/04 1236 Resp 18 11/04 1236 O2 Delivery Room air 11/04 1312 Last Documented: Result Date Time Pulse Ox 100 11/04 1427 B/P 153/72 11/04 1427 B/P Mean 99 11/04 1427 O2 Delivery Room air 11/04 1427 Temp 98.8 11/04 1427 Pulse 85 11/04 1427 Resp 16 11/04 1427 Interpretation Diagnostics Lab Results Interpretation Results Laboratory Tests 11/04/20 1303: [Embedded Image Not Available] Laboratory Tests: 11/04 1303 Chemistry Sodium (133 - 144 mmol/L) 137.0 Potassium (3.5 - 5.1 mmol/L) 3.7 Chloride (95 - 105 mmol/L) 108 H Carbon Dioxide (21 - 32 mmol/L) 24 Anion Gap (4.0 - 15.0 GAP calc) 5.0 BUN (7 - 18 MG/DL) 13 Creatinine (0.55 - 1.30 MG/DL) 0.72 Glucose (70 - 110 MG/DL) 107 Calcium (8.5 - 10.1 MG/DL) 8.8 Total Bilirubin (0.00 - 1.00 MG/DL) 0.57 Direct Bilirubin (0.00 - 0.30 MG/DL) 0.14 Indirect Bilirubin (0.2 - 1.3 MG/DL) 0.43 AST (15 - 37 Unit/L) 18 ALT (12 - 78 Unit/L) 28 Total Alk Phosphatase (45 - 117 Unit/L) 69 Total Protein (6.4 - 8.2 G/DL) 8.0 Albumin (3.4 - 5.0 G/DL) 4.0 Lipase (114 - 286 Unit/L) 61 L Specimen Appearance (1 NORMAL Index/DL) 1 HITESH L <2 MG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 154/87 07/09 2118 B/P Mean 109 07/09 2118 Temp 37.4 07/09 2118 Pulse 69 07/09 2118 Resp 16 07/09 2118 Last Documented: Result Date Time Pulse Ox 100 07/09 2118 B/P 154/87 07/09 2118 B/P Mean 109 07/09 2118 Temp 37.4 07/09 2118 Pulse 69 07/09 2118 Resp 16 07/09 2118 All vital signs available at the time of this en try have been reviewed. Condition Stable Clinical Impression Clinical Impression Primary Impression: Influenza A Disposition Decision Discharge )( Discharged to Home Yes )( Time 2212 )( Date 07/09/19 Discharge/Care Plan Counseled Regarding Diagnosi s, Lab results, Imaging studies, Prescriptions, When to return to ED Prescriptions zofran Discharge Note I have spoken with the patie nt and/or caregivers. I have explained the patient's condition, diagnoses and tex atment plan based on the information available to me at this time. I have answered the patient's and/ or caregiver's questions and addressed any concerns. The patient and/or careg elder have as good an understanding of the patient 's diagnosis, condition and treatment plan as can be expected at this point. The vital signs have bee n stable. The patient's condition is stable and appr opriate for discharge from the emergency department. The patient will pursue further outpatient evalu ation with the primary care physician or other designated or consulting phys ician as outlined in the discharge instructions. The patient and/or caregivers are agreeable to this plan of care and follow-up instructions have been exp lained in detail. The patient and/or caregivers have received these instructio ns in written format and have expressed an understanding of the discharge inst ructions. The patient and/or caregivers are aware that any significant change in condition or worsening of symptoms should prompt an immediate return to [facility] or the closest emergency department or a call to 911. Quality Measures Pharyngitis Testing Group A Strep test doc Electronically Signed by Emile Velásquez on 06/13 02/28 at 2230 [facility] #:[id number] END OF REPORT 2019-07-09 21:28:00-00:00 [facility] ([facility] [facility]) EMERGENCY PROVIDER REPORT REPORT#:[id number] REPORT STATUS: Signed DATE:07/09/19 TIME: 2127 PATIENT: ZONIA HENDRIX UNIT #: [id number] ROOM/BED: AGE: 43 SEX: F PCP PHYS: DOES_NOT KNOW SERVICE DT: AUTHOR: Emile Velásquez PA * ALL edits or amendments must be made on the [employer]/computer document * Emile Velásquez 07/09/192127: HPI-URI/Cough/Cold General Confirmed Patient Yes Presentation Chief Complaint Cough, productive, Fever , Nasal congestion, Sore throat, Upper resp infection Hx Obtained From Patient Onset Occurred Yesterday Free Text HPI Notes Free Text HPI Notes 43-year-old female complains of URI-like symptom s since yesterday. She complains of cough, sore throat, fever, and nasa l congestion. Her coworkers have tested positive for the flu. She took 800 m g of ibuprofen at 1700 hrs. today. She denies any other symptoms. Review of Systems ROS Statements All systems rev neg except as marked. Focused Review of Systems Constitutional Reports: Chills, Fever. Ears/Nose/Throat Reports: Nasal congestion, Sinus problem. Denies : Earache bilat. Respiratory Reports: Cough, productive. Denies: Shortness of breath, Wheezing. Past Medical History - Adult Stated Complaint FEVER AND CHILLS Allergies Coded Allergies: No Known Allergies (07/21/17) Home Medications Reported Medications No Known Home Medications Additional Medical History sciatic nerve Additional Surgical History Reports none Smoking status for patients 13 years old or olde r: Never Smoker Physical Exam Vital Signs Vital Signs First Documented: Result Date Time Pulse Ox 100 07/09 2118 B/P 154/87 07/09 2118 B/P Mean 109 07/09 2118 Temp 37.4 07/09 2118 Pulse 69 07/09 2118 Resp 16 07/09 2118 Last Documented: Result Date Time Pulse Ox 100 07/09 2118 B/P 154/87 07/09 2118 B/P Mean 109 07/09 2118 Temp 37.4 07/09 2118 Pulse 69 07/09 2118 Resp 16 07/09 2118 Review of Vital Signs Reviewed Focused PE General/Const General/Const Awake, Alert, Cooperative Ears/Nose/Throat Ears/Nose/Throat Airway patent, Mucous membrane s moist, Tympanic membs NL, Ext aud canal NL, Mastoid ar ea NL, Nose exam NL, No sinus tenderness, No facial swelling, Gums/dentition NL Pharynx/Tonsils/Uvula Pharyngeal erythema, Tonsillar erythema R, Tons illar erythema L, Tonsillar swelling R, Tonsillar swelling L. Negative: Tons illar exudate R, Tonsillar exudate L. MS Neck Neck Supple, No meningismus, Full range of motion, No adenopathy, No swelling , Non-tender, No midline vertebral tend Resp/Chest Respiratory/Chest Breath sounds NL, Breath soun ds = bilat, No respiratory distress, No wheezing, No retractions Cardiovascular Cardiovascular Heart rate NL, Regular r hythm, Heart sounds NL, Cap refill not delayed, Peripheral circulation NL Abdomen/GI Abdomen/GI Soft, Non-tender, No guarding, No re bound Skin Skin Warm, Dry Neurologic Neurologic Oriented X3, Speech NL, Memory NL Interpretation Diagnostics Lab Results Interpretation Results Laboratory Tests: 07/09 2131 Serology Group A Strep Antibody (NEG SCREEN) NEG Microbiology: Date/Time Procedure - Status Source Growth 07/09 2131 Group A Streptococcus Screen (OSCAR) - RECD THROAT 07/09 2131 Influenza Virus Type B Antigen - COM P NASAL 07/09 2131 Influenza Virus Type A Antigen - COM P NASAL Recent Impressions: RADIOLOGY - XR CHEST 2 V 07/09 2139 Report Impression - Status: SIGNED Entered: 07/09/20192149 IMPRESSION: No acute cardiopulmonary disease. Impression By: Jose - Aimee Iglesias MD Lab Imaging Statement Laboratory radiographic studies reviewed and con sidered in the medical decision-making. Re-Evaluation MDM Free Text MDM Notes Free Text MDM Notes Patient tested positive for influenza A, tolerating PO, will d/c to home. Doubt above emergent diagnoses or other serious bacter ial illness. Patient not , from SNF, chronically ill or immunosup pressed. Will instruct on conservative self-care and techniques to reduce spread for this suspected transient and self-resolving illness. Instructed to follow-up with their PCP in 48 hours for evaluation. Educated on ret urn to ED criteria. Patient agreed and acknowledged understanding of the plan. Re-Evaluation/Progress Re-Evaluation/Progress Re-Eval Status Unchanged Patient Discharge Departure Vital Signs/Condition Vital Signs First Documented: Result Date Time Pulse Ox 100 07/09 2118 B/P 154/87 07/09 2118 B/P Mean 109 07/09 2118 Temp 37.4 07/09 2118 Pulse 69 07/09 2118 Resp 16 07/09 2118 Last Documented: Result Date Time Pulse Ox 100 07/09 2118 B/P 154/87 07/09 2118 B/P Mean 109 07/09 2118 Temp 37.4 07/09 2118 Pulse 69 07/09 2118 Resp 16 07/09 2118 All vital signs available at the time of this en try have been reviewed. Condition Stable Clinical Impression Clinical Impression Primary Impression: Influenza A Disposition Decision Discharge )( Discharged to Home Yes )( Time 2212 )( Date 07/09/19 Discharge/Care Plan Counseled Regarding Diagnosi s, Lab results, Imaging studies, Prescriptions, When to return to ED Prescriptions zofran Discharge Note I have spoken with the patie nt and/or caregivers. I have explained the patient's condition, diagnoses and tex atment plan based on the information available to me at this time. I have answered the patient's and/ or caregiver's questions and addressed any concerns. The patient and/or careg elder have as good an understanding of the patient 's diagnosis, condition and treatment plan as can be expected at this point. The vital signs have bee n stable. The patient's condition is stable and appr opriate for discharge from the emergency department. The patient will pursue further outpatient evalu ation with the primary care physician or other designated or consulting phys ician as outlined in the discharge instructions. The patient and/or caregivers are agreeable to this plan of care and follow-up instructions have been exp lained in detail. The patient and/or caregivers have received these instructio ns in written format and have expressed an understanding of the discharge inst ructions. The patient and/or caregivers are aware that any significant change in condition or worsening of symptoms should prompt an immediate return to [facility] or the closest emergency department or a call to 911. Quality Measures Pharyngitis Testing Group A Strep test Odell Jacobs 07/09/19 2321: HPI-URI/Cough/Cold General Initial Greet Date/Time 07/09/192119 Patient Discharge Departure Supervising Physician Note MidLv Saw Pt Alone I have reviewed the PA/WORKING MANAGER's note and plan of car e. I was available for consultation as needed at al l times during the patient's visit in the emergency department Electronically Signed by Emile Velásquez on 06/13 02/28 at 2230 Electronically Signed by Odell Caicedo MD on 06/13 02/28 at 4494 RPT #:[id number] END OF REPORT
--- NOTE | 2023-02-27 13:32 | EDPHYS ---
Physician Documentation [facility] Name: Samantha Garcia Age: 47 yrs Sex: Female : 1975 Arrival Date: 02/27/2023 Time: 13:18 Bed IW1 Private MD: ED Physician Jono Scherer HPI: 02/27 13:37 This 47 yrs old Female presents to ER via Ambulatory with complaints of Flu Symptoms. kb 13:40 The patient presents with sore throat. The patient describes throat pain as constant. kb Onset: The symptoms/episode began/occurred yesterday. Severity of symptoms: At their worst the symptoms were moderate, in the emergency department the symptoms are unchanged. Modifying factors: The symptoms are alleviated by nothing, the symptoms are aggravated by swallowing, Patient's oral intake status: good. Associated signs and symptoms: Pertinent positives: chills, fever, Sore throat. The patient has not experienced similar symptoms in the past. The patient has not recently seen a physician. 13:43 Pt reports fever, bodyaches, and sore throat since yesterday. Tested negative for flu kb and covid yesterday. . Historical: - Allergies: 13:31 No Known Allergies; cm10 - Home Meds: 13:31 None [Active]; cm10 - PMHx: 13:31 None; cm10 - PSHx: 13:31 section; cm10 - Immunization history:: Adult Immunizations unknown. - Social history:: Smoking status: Reported history of juuling and/or vaping. ROS: 13:34 Respiratory: Negative for shortness of breath, cough, wheezing, and pleuritic chest kb pain. 13:34 Constitutional: Positive for body aches, chills, fatigue, fever, malaise. 13:34 ENT: Positive for sore throat. 13:34 All other systems are negative. Exam: 13:34 Constitutional: This is a well developed, well nourished patient who is awake, alert, kb and in no acute distress. Head/Face: Normocephalic, atraumatic. Cardiovascular: Regular rate and rhythm with a normal S1 and S2. No gallops, murmurs, or rubs. No pulse deficits. Respiratory: Respirations even and unlabored. No increased work of breathing. Talking in full sentences Skin: Warm, dry with normal turgor. Normal color. MS/ Extremity: Pulses equal, no cyanosis. Neurovascular intact. Full, normal range of motion. Neuro: Awake and alert, GCS 15, oriented to person, place, time, and situation. Moves all extremities. Normal gait. 13:34 ENT: Posterior pharynx: Airway: normal, Tonsils: bilaterally enlarged, with erythema, with exudate, Uvula: normal, midline, swelling, that is moderate, erythema, that is moderate, exudate, that is moderate. Vital Signs: 13:28 BP 144 / 93; Pulse 100; Resp 18; Temp 99.7; Pulse Ox 97% ; Weight 127.01 kg; Height 5 cm10 ft. 4 in. ; Pain 6/10; 13:28 Body Mass Index 48.06 (127.01 kg, 162.56 cm) cm10 13:28 Pain Scale: Adult cm10 MDM: 13:24 Patient medically screened. kb 13:35 Differential diagnosis: strep, tonsillitis, pharyngitis, flu, covid. Data reviewed: kb vital signs, nurses notes. Test considered but Not performed: Labs: covid, flu and strep tests considered, but result would not change treatment plan. Counseling: I had a detailed discussion with the patient and/or guardian regarding the historical points, exam findings, and any diagnostic results supporting the discharge/admit diagnosis, the need for outpatient follow up, a family practitioner, to return to the emergency department if symptoms worsen or persist or if there are any questions or concerns that arise at home. 13:40 Care significantly affected by the following Social Determinants of Health: Poor access kb to healthcare and/or lack of insurance. Administered Medications: No medications were administered Disposition: 14:11 Co-signature as Attending Physician, Jono Scherer MD I reviewed the patient's care rn provided by the Advanced Practice Provider and agree with the diagnosis and treatment plan. Disposition Summary: 02/27/23 13:31 Discharge Ordered Location: Home Condition: Stable kb Diagnosis - Streptococcal pharyngitis kb Followup: kb - With: Emergency Department - When: As needed - Reason: Worsening of condition Followup: kb - With: Private Physician - When: 2 - 3 days - Reason: Recheck today's complaints, Continuance of care, Re-evaluation by your physician Discharge Instructions: - Discharge Summary Sheet kb - Strep Throat, Adult, [id number] kb Forms: - Work release form kb - Medication Reconciliation Form kb - Thank You Letter kb - Antibiotic Education kb - Prescription Opioid Use kb - Patient Portal Instructions kb - Leadership Thank You Letter kb Prescriptions: - Augmentin 875-125 mg Oral Tablet - take 1 tablet by ORAL route every 12 hours for 10 days; 20 tablet; Refills: 0, kb Product Selection Permitted Signatures: Marleny Montana FNP-C FNP-Jono Teixeira MD MD rn Peggy Murphy RN RN cm10
--- NOTE | 2023-02-27 13:32 | ER ---
Nurse's Notes [facility] Name: Samantha Garcia Age: 47 yrs Sex: Female : 1975 Arrival Date: 02/27/2023 Time: 13:18 Bed IW1 Private MD: Diagnosis: Streptococcal pharyngitis Presentation: 02/27 13:28 Chief complaint: Patient states: sore throat, fever and body aches onset yesterday. Pt cm10 woke up this morning and had pus pockets on her tonsils. Tmax 101. 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 Coronavirus screen: Vaccine status: Patient reports receiving the 2nd dose of the covid vaccine. Ebola Screen: Patient denies travel to an Ebola-affected area in the 21 days before illness onset. No symptoms or risks identified at this time. Initial Sepsis Screen: Does the patient meet any 2 criteria? HR > 90 bpm. Does the patient have a suspected source of infection? Yes:. Risk Assessment: Do you want to hurt yourself or someone else? Patient reports no desire to harm self or others. Onset of symptoms was February 27, 2023. 13:28 Method Of Arrival: Ambulatory cm10 13:28 Acuity: GONZALEZ 4 cm10 Triage Assessment: 13:38 General: Appears in no apparent distress. comfortable, Behavior is calm, cooperative. cm10 Pain: Complains of pain in Throat. EENT: Reports pain in Throat when swallowing. Neuro: No deficits noted. Level of Consciousness is awake, alert, obeys commands, Oriented to person, place, time, situation. Respiratory: No deficits noted. Airway is patent Respiratory effort is even, unlabored, Respiratory pattern is regular, symmetrical. Historical: - Allergies: 13:31 No Known Allergies; cm10 - Home Meds: 13:31 None [Active]; cm10 - PMHx: 13:31 None; cm10 - PSHx: 13:31 section; cm10 - Immunization history:: Adult Immunizations unknown. - Social history:: Smoking status: Reported history of juuling and/or vaping. Screenin:39 [facility] ED Fall Risk Assessment (Adult) History of falling in the last 3 months, cm10 including since admission No falls in past 3 months (0 pts) Confusion or Disorientation No (0 pts) Intoxicated or Sedated No (0 pts) Impaired Gait No (0 pts) Mobility Assist Device Used No (0 pt) Altered Elimination No (0 pt) Score/Fall Risk Level 0 - 2 = Low Risk Oriented to surroundings, Maintained a safe environment. Abuse screen: Denies threats or abuse. Denies injuries from another. Nutritional screening: No deficits noted. Tuberculosis screening: No symptoms or risk factors identified. Assessment: 13:38 Reassessment: See triage assessment. cm10 Vital Signs: 13:28 BP 144 / 93; Pulse 100; Resp 18; Temp 99.7; Pulse Ox 97% ; Weight 127.01 kg; Height 5 cm10 ft. 4 in. ; Pain 6/10; 13:28 Body Mass Index 48.06 (127.01 kg, 162.56 cm) cm10 13:28 Pain Scale: Adult cm10 ED Course: 13:23 Patient arrived in ED. im 13:24 Marleny Montana F[facility]-C [facility]. kb 13:24 Jono Scherer MD is Attending Physician. kb 13:31 Triage completed. cm10 13:31 Arm band placed on Patient placed. cm10 13:39 Patient has correct armband on for positive identification. Provided Education on: N/A. cm10 13:39 No provider procedures requiring assistance completed. Patient did not have IV access cm10 during this emergency room visit. Administered Medications: No medications were administered Medication: 13:39 VIS not applicable for this client. cm10 Outcome: 13:31 Discharge ordered by . kb 13:39 Discharged to home ambulatory. cm10 13:39 Condition: good 13:39 Discharge instructions given to patient, Instructed on discharge instructions, follow up and referral plans. medication usage, Demonstrated understanding of instructions, follow-up care, medications, Prescriptions given X 1. 13:39 Patient left the ED. cm10 Signatures: Marleny Montana FNP-C FNP-Ckb Mendoza, Itzel im Martinez, Clarissa, RN RN cm10
[2023-02-27 13:50] VITALS: BP 144/93; TEMP 99.7; O2SAT 97
== END 2023-02-27 13:39 | disposition home or self-care (01) ==
LOC: ER 13:18
DX: J02.0 Streptococcal pharyngitis (principal)
CPT/HCPCS: 99283

== ENCOUNTER 2024-08-14 13:40 | Emergency (ER) | payer SELFPAY ==
--- NOTE | 2024-08-14 15:07 | RAD REPORT ---
EXAMINATION: US LOWER EXTREMITY VENOUS DOPPLER BILATERAL CLINICAL INDICATION: Female, 48 years old.Swelling;Pain TECHNIQUE: Complete bilateral duplex sonography of the lower extremity veins was performed. The exami nation included compression for vein patency, color Doppler imaging and flow augmentation in response to distal compression of the distal external iliac, common femoral, femoral, popliteal, david scott, tibial and great saphenous veins. [id number]. COMPARISON: No prior exams FINDINGS: Duplex sonography imaging demonstrates all deep examined to be fully compressible with spontaneous, p hasic and augmented flow bilaterally. IMPRESSION: No evidence of deep venous thrombosis seen in either lower extremity.
[2024-08-14 16:12] LABS: Absolute Basophils 0.1 K/uL (0-0.5); Absolute Eosinophils 0.1 K/uL (0-0.5); Absolute Lymphocytes (CBC) 1.7 K/uL (0.7-4.9); Absolute Monocytes 0.4 K/uL (0.1-1.3); Absolute Neutrophil 6.4 K/uL (1.8-8.0); Basophils % 0.9 % (0-1.3); Eosinophils % 1.6 % (0-4.4); Hematocrit 29.3 % (36.0-45.0); Hemoglobin 9.3 g/dL (12.0-15.0); Lymphocytes % 19.4 % (15.3-44.8); MCH 22.9 pg (27.0-35.0); MCHC 31.8 g/dL (32.0-36.0); MCV 72.1 fL (80-100); MPV 8.9 fL (7.6-11.3); Monocytes % 4.4 % (3.3-12.3); Neutrophils % 73.7 % (41.7-73.7); Platelets 189 thou/uL (152-406); RBC Red Blood Cell Count 4.06 M/uL (3.86-4.86); Red Cell Distribution Width 18.2 % (12.1-15.2)
[2024-08-14 16:19] LABS: PT Prothrombin Time 12.4 SECONDS (9.4-12.5); Protime INR 1.18
[2024-08-14 16:35] LABS: Bicarbonate 26 mEq/L (21-32); Potassium 3.5 mEq/L (3.5-5.1); Sodium Level 138 mEq/L (136-145)
[2024-08-14 16:36] LABS: ALT/SGPT 22 U/L (13-56); AST/SGOT 12 U/L (15-37); Albumin 3.4 g/dL (3.4-5.0); Albumin/Globulin Ratio 0.9 (1.1-1.8); Alkaline Phosphatase 93 U/L (45-117); BUN Blood Urea Nitrogen 15 mg/dL (7-18); Bilirubin Direct 0.1 mg/dL (0-0.2); Bilirubin Indirect, Calculated 0.4 mg/dL (0.2-0.8); Bilirubin Total 0.5 mg/dL (0.2-1.0); Glomerular Filtration Rate 100 ml/min (=/>90); Glucose Level 119 mg/dL (74-106); Protein, Total 7.4 g/dL (6.4-8.2); Troponin High Sensitivity < 3.0 (<58.9)
--- NOTE | 2024-08-14 18:05 | RAD REPORT ---
EXAM: Foot Left 3 View HISTORY: PAIN COMPARISON: None FINDINGS: Bones: No acute fracture identified. Alignment:No significant malalignment. Degenerative changes:Calcaneal spurs. Mild midfoot degenerative changes. Other: n/a IMPRESSION: No evidence of acute osseous abnormality involving the imaged foot.
--- NOTE | 2024-08-14 18:06 | RAD REPORT ---
EXAM: Chest Single View HISTORY: edema COMPARISON: 01/15/2022 FINDINGS: LUNGS/PLEURA: The lungs are clear. No pleural effusions or pneumothorax. No pulmonary edema. MEDIASTINUM: The mediastinal silhouette is within normal limits. CARDIAC: The cardiac silhouette is within normal limits. UPPER ABDOMEN: No significant abnormality. BONES: No acute abnormality. LINES/TUBES/OTHER: N/A IMPRESSION: No evidence of acute cardiopulmonary disease.
[2024-08-14 18:26] LABS: Ferritin 3.3 ng/mL (8-252)
--- NOTE | 2024-08-14 18:28 | ER ---
Nurse's Notes [facility] Name: Samantha Garcia Age: 48 yrs Sex: Female : 1975 Arrival Date: 08/14/2024 Time: 13:40 Bed Treatment Private MD: Diagnosis: Edema, unspecified;Pain in left foot;Iron deficiency anemia, unspecified Presentation: 08/14 14:23 Chief complaint: Patient states: Left foot pain onset 6 weeks ago. Pt states that the cm10 pain has been progressively getting worse. Coronavirus screen: Client denies travel out of the [place] in the last 14 days. Ebola Screen: Patient denies travel to an Ebola-affected area in the 21 days before illness onset. Initial Sepsis Screen: Does the patient meet any 2 criteria? No. Patient's initial sepsis screen is negative. Does the patient have a suspected source of infection? No. Patient's initial sepsis screen is negative. Risk Assessment: Do you want to hurt yourself or someone else? Patient reports no desire to harm self or others. Onset of symptoms is unknown. 14:23 Method Of Arrival: Ambulatory cm10 14:23 Acuity: GONZALEZ 4 cm10 Triage Assessment: 14:25 General: Appears in no apparent distress. comfortable, Behavior is calm, cooperative. cm10 Pain: Complains of pain in left foot Pain currently is 8 out of 10 on a pain scale. Quality of pain is described as sharp, throbbing. Neuro: No deficits noted. Level of Consciousness is awake, alert, obeys commands, Oriented to person, place, time, situation, Appropriate for age. Respiratory: No deficits noted. Airway is patent Respiratory effort is even, unlabored, Respiratory pattern is regular, symmetrical. Musculoskeletal: Reports pain in left foot. Historical: - Allergies: 14:25 No Known Allergies; cm10 - Home Meds: 14:25 None [Active]; cm10 - PMHx: 16:00 Anemia; aa5 - PSHx: 14:25 section; cm10 - Immunization history:: Adult Immunizations up to date. - Infectious Disease History:: Denies. - Social history:: Smoking status: Reported history of juuling and/or vaping. Screenin:50 [facility] ED Fall Risk Assessment (Adult) History of falling in the last 3 months, aa5 including since admission No falls in past 3 months (0 pts) Confusion or Disorientation No (0 pts) Intoxicated or Sedated No (0 pts) Impaired Gait No (0 pts) Mobility Assist Device Used No (0 pt) Altered Elimination No (0 pt) Score/Fall Risk Level 0 - 2 = Low Risk Oriented to surroundings, Maintained a safe environment, Educated pt \T\ family on fall prevention, incl call for assistance when getting out of bed, Assessed \T\ reinforced patient's understanding of fall precautions. Abuse screen: Denies threats or abuse. Nutritional screening: No deficits noted. Tuberculosis screening: No symptoms or risk factors identified. Assessment: 15:50 General: Appears comfortable, Behavior is calm, cooperative. Pain: Complains of pain in aa5 left foot Pain currently is 8 out of 10 on a pain scale. Quality of pain is described as burning, Is continuous, Aggravated by weight bearing. Neuro: Level of Consciousness is awake, alert, obeys commands, Oriented to person, place, time, situation. Cardiovascular: Heart tones S1 S2 present Rhythm is sinus rhythm. Respiratory: Airway is patent Respiratory effort is even, unlabored, Respiratory pattern is regular, symmetrical. GI: No signs and/or symptoms were reported involving the gastrointestinal system. : No signs and/or symptoms were reported regarding the genitourinary system. EENT: No signs and/or symptoms were reported regarding the EENT system. Derm: Skin is pink, warm \T\ dry. Musculoskeletal: Range of motion: intact in all extremities, Swelling present in left medial malleolus. 16:24 Reassessment: Pt given warm blanket for comfort.. aa5 17:30 Reassessment: Patient is alert, oriented x 3, equal unlabored respirations, skin aa5 warm/dry/pink. 18:50 Reassessment: Patient is alert, oriented x 3, equal unlabored respirations, skin aa5 warm/dry/pink. Vital Signs: 14:23 BP 141 / 72; Pulse 82; Resp 15; Temp 98.2; Pulse Ox 97% on R/A; Weight 127.01 kg; cm10 Height 5 ft. 4 in. ; Pain 8/10; 17:30 BP 138 / 80; Pulse 78; Resp 19 S; Pulse Ox 98% on R/A; aa5 14:23 Body Mass Index 48.06 (127.01 kg, 162.56 cm) cm10 14:23 Pain Scale: Adult cm10 ED Course: 13:43 Patient arrived in ED. ra3 13:56 Gerson Wong PA is PHCP. cp 13:56 Jono Scherer MD is Attending Physician. cp 14:25 Triage completed. cm10 14:25 Arm band placed on right wrist. Patient placed in waiting room. cm10 15:06 US Extremity Venous W Compression Naif In Process Unspecified. EDMS 15:32 Pearl Briones, RN is Primary Nurse. aa5 15:50 Patient has correct armband on for positive identification. Bed in low position. Call aa5 light in reach. Side rails up X2. Adult w/ patient. Client placed on continuous cardiac and pulse oximetry monitoring. NIBP monitoring applied. property assessment monitor on. Pulse ox on. NIBP on. 16:00 Initial lab(s) drawn, by me, sent to lab. EKG done, by ED staff, reviewed by Gerson WATERS. Inserted saline lock: 20 gauge in left antecubital area, using aseptic technique. Blood collected. Flushed with 10 mL NS. 16:29 No provider procedures requiring assistance completed. aa5 17:45 XRAY Foot LEFT 3 View In Process Unspecified. EDMS 17:45 XRAY Chest (1 view) In Process Unspecified. EDMS 18:52 IV discontinued, intact, bleeding controlled, No redness/swelling at site. Pressure aa5 dressing applied. Administered Medications: No medications were administered Medication: 16:28 VIS not applicable for this client. aa5 Outcome: 18:28 Discharge ordered by MD. cp 18:52 Discharged to home ambulatory, with significant other, aa5 18:52 Condition: stable 18:52 Discharge instructions given to patient, Instructed on discharge instructions, follow up and referral plans. medication usage, Demonstrated understanding of instructions, follow-up care, medications, Prescriptions given X 2, 18:54 Patient left the ED. aa5 Signatures: Dispatcher [employer] EDPA Pearl Briones, RN RN aa5 Gerson Wong PA PA cp Martinez, Clarissa RN RN cmPam Craft ra3 Corrections: (The following items were deleted from the chart) 17:03 14:25 PMHx: None; cm10 aa5
--- NOTE | 2024-08-14 18:28 | EDPHYS ---
Physician Documentation [facility] Name: Samantha Garcia Age: 48 yrs Sex: Female : 1975 Arrival Date: 08/14/2024 Time: 13:40 Bed Treatment Private MD: ED Physician Jono Scherer HPI: 08/14 14:33 This 48 yrs old Female presents to ER via Ambulatory with complaints of Foot Pain - cp swelling for 6weeks. 14:33 The patient presents with swelling, left foot pain. The complaints affect the left cp lower extremity and right lower extremity. Context: resulted from an unknown cause. Onset: The symptoms/episode began/occurred 6 week(s) ago. Associated signs and symptoms: Pertinent positives: burning pain of lower legs and feet, Pertinent negatives fever, warmth, shortness of breath. 14:33 Treatment prior to arrival includes: no previous treatment. cp Historical: - Allergies: 14:25 No Known Allergies; cm10 - Home Meds: 14:25 None [Active]; cm10 - PMHx: 16:00 Anemia; aa5 - PSHx: 14:25 section; cm10 - Immunization history:: Adult Immunizations up to date. - Infectious Disease History:: Denies. - Social history:: Smoking status: Reported history of juuling and/or vaping. ROS: 14:35 Constitutional: Negative for body aches, chills, fever, poor PO intake, cp 14:35 Cardiovascular: Positive for edema, Negative for chest pain, palpitations, cp 14:35 Respiratory: Negative for cough, shortness of breath, wheezing, 14:35 Abdomen/GI: Negative for abdominal pain, nausea, vomiting, and diarrhea, 14:35 MS/extremity: Positive for pain, of the left foot, Negative for injury or acute deformity, 14:35 Neuro: Negative for altered mental status, dizziness, headache, numbness, weakness, 14:35 All other systems are negative, Exam: 14:50 Constitutional: The patient appears in no acute distress, alert, awake, cp non-diaphoretic, non-toxic, well developed, well nourished, obese, 14:50 Head/Face: Normocephalic, atraumatic. cp 14:50 Eyes: Periorbital structures: appear normal, Conjunctiva: normal, no exudate, no injection, Sclera: no appreciated abnormality, Lids and lashes: appear normal, bilaterally, 14:50 ENT: External ear(s): are unremarkable, Nose: is normal, Mouth: Lips: moist, Oral mucosa: moist, Posterior pharynx: Airway: no evidence of obstruction, patent, 14:50 Neck: ROM/movement: is normal, is supple, without pain, no range of motions limitations, 14:50 Chest/axilla: Inspection: normal, 14:50 Cardiovascular: Rate: normal, Rhythm: regular, Edema: ankle edema, that is mild, JVD: is not appreciated, 14:50 Respiratory: the patient does not display signs of respiratory distress, Respirations: normal, no use of accessory muscles, no retractions, labored breathing, is not present, Breath sounds: are clear throughout, no decreased breath sounds, no stridor, no wheezing, 14:50 Abdomen/GI: Exam negative for discomfort, distension, guarding, Inspection: abdomen appears normal, 14:50 Back: pain, is absent, ROM is normal, 14:50 Musculoskeletal/extremity: Extremities: noted in the left foot: tenderness, mild swelling, There is no evidence of decreased ROM, erythema, 14:50 Skin: cellulitis, is not appreciated, no rash present. 14:50 Neuro: Orientation: to person, place \T\ time. Mentation: is normal, Motor: moves all fours, strength is normal, Sensation: is normal, 16:00 ECG was reviewed by the Attending Physician. Vital Signs: 14:23 BP 141 / 72; Pulse 82; Resp 15; Temp 98.2; Pulse Ox 97% on R/A; Weight 127.01 kg; cm10 Height 5 ft. 4 in. ; Pain 8/10; 17:30 BP 138 / 80; Pulse 78; Resp 19 S; Pulse Ox 98% on R/A; aa5 14:23 Body Mass Index 48.06 (127.01 kg, 162.56 cm) cm10 14:23 Pain Scale: Adult cm10 MDM: 14:29 Medical Screening Exam initiated cp 18:28 Data reviewed: vital signs, nurses notes, lab test result(s), EKG, radiologic studies, cp plain films, and as a result, I will discharge patient. 18:28 Differential diagnosis: dvt, fracture, kidney failure, chf, dependent edema. cp Independent interpretation of the following test(s) in the Emergency Department EKG: See my EKG interpretation above. Counseling: I had a detailed discussion with the patient and/or guardian regarding the historical points, exam findings, and any diagnostic results supporting the discharge/admit diagnosis, lab results, radiology results, the need for outpatient follow up, a family practitioner, to return to the emergency department if symptoms worsen or persist or if there are any questions or concerns that arise at home. 08/14 14:30 Order name: Basic Metabolic Panel; Complete Time: 17:14 cp 02 17:14 Interpretation: Normal except: CL 108; GLUC 119. cp 08/14 14:30 Order name: CBC with Diff; Complete Time: 16:26 cp 08/14 16:26 Interpretation: Normal except: HGB 9.3; HCT 29.3; MCV 72.1; MCH 22.9; MCHC 31.8; RDW cp 18.2. 08/14 14:30 Order name: LFT's; Complete Time: 17:14 cp 08/14 17:15 Interpretation: Normal except: AST 12; GLOB 4.0; A/G 0.9. cp 08/14 14:30 Order name: Magnesium; Complete Time: 17:14 cp 08/14 17:15 Interpretation: Reviewed. cp 08/14 14:30 Order name: PT-INR; Complete Time: 16:26 cp 08/14 14:30 Order name: Troponin HS; Complete Time: 17:14 cp 08/14 17:15 Interpretation: Reviewed. cp 08/14 16:26 Order name: TIBC; Complete Time: 18:27 cp 08/14 18:27 Interpretation: Reviewed. cp 08/14 16:26 Order name: Ferritin; Complete Time: 18:27 cp 08/14 18:27 Interpretation: Reviewed. cp 08/14 14:30 Order name: US Extremity Venous W Compression Naif; Complete Time: 16:26 cp 02/ 16:26 Order name: XRAY Foot LEFT 3 View; Complete Time: 18:20 cp 02 17:17 Order name: XRAY Chest (1 view); Complete Time: 18:20 cp 08/14 14:30 Order name: Cardiac monitoring; Complete Time: 16:14 cp 08/14 14:30 Order name: EKG - Nurse/Tech; Complete Time: 16:14 cp 08/14 14:30 Order name: IV Saline Lock; Complete Time: 16:14 cp 08/14 14:30 Order name: Labs collected and sent; Complete Time: 16:14 cp 08/14 14:30 Order name: O2 Per Protocol; Complete Time: 16:14 cp 08/14 14:30 Order name: O2 Sat Monitoring; Complete Time: 16:14 cp EC:00 Rate is 69 beats/min. Rhythm is regular. NC interval is normal. QRS interval is normal. cp QT interval is normal. T waves are Inverted in lead aVR. Interpreted by me. Reviewed by me. Administered Medications: No medications were administered Disposition: 18:56 Co-signature as Attending Physician, Jono Scherer MD I reviewed the patient's care rn provided by the Advanced Practice Provider and agree with the diagnosis and treatment plan. 08/15 18:53 Chart complete. cp Disposition Summary: 08/14/24 18:28 Discharge Ordered Notes: Location: Home cp Problem: new cp Symptoms: have improved cp Condition: Stable cp Diagnosis - Edema, unspecified cp - Pain in left foot cp - Iron deficiency anemia, unspecified cp Followup: cp - With: Private Physician - When: 1 week - Reason: Recheck today's complaints Discharge Instructions: - Discharge Summary Sheet cp - Iron Deficiency Anemia, Adult cp - Iron-Rich Diet cp - Musculoskeletal Pain cp - Foot Pain cp - Peripheral Edema cp - How to Use Compression Stockings cp Forms: - Medication Reconciliation Form cp - Antibiotic Education cp - Prescription Opioid Use cp - Patient Portal Instructions cp - Leadership Thank You Letter cp - Work release form ld1 Prescriptions: - Ferrous Sulfate 325 mg (65 mg Iron) Oral tablet - take 1 tablet ORAL route every 12 hours; 60 tablet; Refills: 0, Product cp Selection Permitted - Ibuprofen 800 mg Oral Tablet - take 1 tablet ORAL route every 8 hours As needed take with food; 30 tablet; cp Refills: 0, Product Selection Permitted Signatures: Dispatcher [employer] Jono Murphy MD MD rn Calderon, Audri RN RN aa5 Gerson Wong PA PA cp Martinez, Clarissa RN RN cm10 Corrections: (The following items were deleted from the chart) 08/14 14:31 14:31 Extrem Venous W Compression Naif+US.RAD.BRZ ordered. EDCT EDMS 14:31 14:31 BASIC METABOLIC PANEL+C.LAB.BRZ ordered. EDMS EDMS 14:31 14:31 CBC+H.LAB.BRZ ordered. EDMS EDMS 14:31 14:31 HEPATIC FUNCTION+C.LAB.BRZ ordered. EDMS EDMS 14:31 14:31 MAGNESIUM+C.LAB.BRZ ordered. EDMS EDMS 14:31 14:31 PROTIME (+INR)+COAG.LAB.BRZ ordered. EDMS EDMS 14: 14:31 Troponin High Sensitivity+C.LAB.BRZ ordered. EDMS EDMS 16:26 16:26 Foot Left 3 View+RAD.RAD.BRZ ordered. EDMS EDMS 17:03 14:25 PMHx: None; cm10 aa5
[2024-08-14 18:58] VITALS: BP 141/72; TEMP 98.2; O2SAT 97
--- NOTE | 2024-08-16 12:18 | EKG ---
Test Date: 2024-08-14 Test Time: 15:54:39 [employer] Inspector: PAOLO MEASUREMENT RESULTS: Intervals: Rate: 69 [place]: 170 QRSD: 92 QT: 400 QTc: 428 [place]: P: 68 [place]: 170 QRS: 47 T: 26 INTERPRETIVE STATEMENTS: Normal sinus rhythm with sinus arrhythmia Normal ECG No previous ECG available for comparison Electronically Signed On 08-16-24 12:15:19 HAND SAMPLE MAKER by Leighton Jimenez
== END 2024-08-14 18:54 | disposition home or self-care (01) ==
LOC: ER 13:40
DX: M79.672 Pain in left foot (principal); R60.9 Edema, unspecified; D50.9 Iron deficiency anemia, unspecified
CPT/HCPCS: 36415; 71045; 80048; 80076; 82728; 83540; 83735; 84466; 84484; 85025; 85610; 93005; 93970; 99284